=== PATIENT | male | born 1965 | race Caucasian/White ===

== ENCOUNTER 2024-02-21 10:13 | Inpatient (IN) | payer OTHER, SELFPAY ==
[2024-02-21] VITALS (62 sets, daily range): BP systolic 104–154; BP diastolic 65–128; BMI 43.2; BMI 42.5
[2024-02-21 09:18] LABS: Glucose - Point of Care 126 mg/dl (70-99)
--- NOTE | 2024-02-21 09:21 | ED.CVA ---
ED Provider Triage
-
59-year-old male with history of hypertension and hyperlipidemia (not on medications) presenting as a prehospital stroke alert. Patient reports that he last felt normal at 8 AM. At 830 [address] and started to feel like he was having
right-sided weakness and slurred speech. He walked into a store where they noticed his symptoms. Medics were subsequently called. Patient denies any known history of stroke. On arrival, obvious deficits with right upper extremity weakness and
slurred speech with facial drooping. Patient denies any numbness to his extremities. He denies any recent fever, chest pain, difficulty breathing, abdominal pain or additional acute medical complaints. He denies visual changes. Patient reports
smoking history, and notes that he is not on any medications, including any anticoagulant
History of Present Illness
General
Chief Complaint: CVA/TIA Symptoms
Time Seen by Provider: 02/21/24 09:18
Phy Exam
Physical Exam
Physical Exam:
General: no clinical signs of dehydration, nontoxic and in no acute distress
HEENT: protecting airway
Neck: appears supple
CV: Normal heart rate, regular rhythm, no evidence of cyanosis
Resp: No accessory muscle use, no increased work of breathing, lungs clear to auscultation bilaterally
Abd: Soft and non-distended, no tenderness to palpation
Extremities: No deformities, no swelling, no erythema
Neuro: alert, drift to right upper extremity, sensation grossly intact. Slurred speech. Mild left-sided facial droop. Motor intact to lower extremities
: deferred
Rectal: deferred
Psych: Normal affect
Skin: Intact
NIH Stroke Score
Level of Consciousness: 0 - Alert
LOC questions: 0-Answers both correctly
LOC Commands: 0-Performs both correctly
Best Gaze: 0-Normal
Visual Harris: 0=Normal, no visual loss
Facial palsy: 1=Minor paralysis
Motor - Right Arm: 1=Drift < 10 seconds
Motor - Left Arm: 0=No drift 10 seconds
Motor - Right Le-No drift 5 seconds
Motor - Left Le-No drift 5 seconds
Limb Ataxia: 0-Absent
Sensation: 0-Normal
Best Language: 1-Mild aphasia
Dysarthria: 2-Severe slurring
Extinction and Inattention: 0-No abnormality
Total Score:: 5
Course
Orders/Labs/Results
Orders:
Orders
02/21/24 09:18
CT Head W/o Cont STROKE ALERT Urgent
Comment:
Reason For Exam: right sided weakness
CT Head/Neck Ang STROKE ALERT Urgent
Comment:
Reason For Exam: right sided weakness
Bedside Glucose- Treatment ONCE
Cardiac Monitoring- Treatment ONCE
02/21/24 09:19
Electrocardiogram (*1) Stat
Reason for Study: Other
Other Reason for Exam: neuro symptoms
EKG- Treatment ONCE
02/21/24 09:20
NEUROLOGY CONSULT Urgent
Consulting Provider: Emiliano Au
Was physician already notified: Yes
Reason for consult: stroke alert
02/21/24 09:24
Complete Blood Count/With Diff Urgent
Comprehensive Metabolic Panel Urgent
PTT Urgent
Troponin I Urgent
02/21/24 09:31
Type+Screen Urgent
02/21/24 09:37
Labetalol HCl [Trandate] 20 mg .ROUTE .STK-MED ONE
02/21/24 09:44
Tenecteplase [Tnkase] 25 mg Syringe [Syringe Non-Pump] 0 ml IV NOW
Abnormal Lab Results
02/21/24 02/21/24
09:17 09:24
RBC 4.55 L 10^6/uL
(4.70-6.10)
Hct 38.9 L %
(39.0-52.0)
Abs Immat Gran (auto) 0.3 H 10^3/uL
(0-0.05)
Absolute Monos (auto) 1.4 H 10^3/uL
(0.1-0.6)
Immature Gran % 3.1 H %
(0-0.5)
Lymphocytes % 16.1 L %
(20.5-51.1)
Monocytes % 15.9 H %
(1.7-9.3)
Glucose 128 H mg/dl
(70-99)
POC Glucose 126 H mg/dl
(70-99)
02/21/24 09:24
02/21/24 09:24
Vital Signs
Initial and Last Documented VS:
Initial Vital Signs
Temp Pulse Resp BP Pulse Ox
98.5 F 76 18 149/88 92
02/21/24 09:16 02/21/24 09:16 02/21/24 09:16 02/21/24 09:16 02/21/24 09:16
Last Documented Vital Signs
Temp Pulse Resp BP Pulse Ox
98.5 F 75 18 145/85 92
02/21/24 09:16 02/21/24 09:39 02/21/24 09:39 02/21/24 09:39 02/21/24 09:39
MDM/Problems Addressed
MDM/Problems Addressed:
59-year-old male with history of hypertension and hyperlipidemia, however not on any medications, presenting as a prehospital stroke alert. Vital signs significant for mild hypertension.
On exam, patient with obvious neurologic deficits, right upper extremity weakness, slurred speech, facial droop. Neurology nurse practitioner at bedside on patient's arrival. Stroke alert protocol initiated, with initial evaluation completed, and
patient's sent to CT scan for CT brain. Given language component, decision made to obtain CT angio to rule out embolic component. IV access obtained laboratory analysis drawn.
09:38 -neurologist at bedside. Called by radiology, negative CT brain. Given deficits, plan for TNK. Risks explained to patient, verbally consented.
09:45 -critical care alert message sent to ICU and admitting doctor, again with plan for TNK administration.
*Critical Care Note
Total Time (30-74mins, 75-104mins- exclusive of procedures): 35
comment:
The high probability of a clinically significant, sudden or life threatening deterioration of the neurologic system(s) required my full and direct attention, intervention and personal management. The aggregate critical care time was 35 minutes. This
time is in addition to time spent performing reported procedures but includes the following:
[x] Data Review and interpretation
[x] Patient assessment and monitoring of vital signs
[x] Documentation
[x] Medication orders and management
ED Attending Note
-
Portions of this chart may have been created with voice recognition software.� Occasional wrong word or��sound alike� substitutions may have occurred due to the inherent limitations of voice recognition software.
Discharge Plan
Departure
Patient Disposition: Admit
Date of Disposition: 02/21/24
Time of Disposition: 09:45
Presentation/result/management discussed w/ accepting MD/DO: Hospitalist
Patient with high blood pressure during this ER visit?: Yes
Condition: Serious
Discharge Problem:
Stroke-like symptoms, Dysphagia, Dysarthria, Right arm weakness, Hypertension
Interventions
Interventions:
*General Assessment Last Done: 02/21/24 09:16
ED- Pulmonary Assessment Last Done: 02/21/24 09:33
ED- Neurological Assessment Last Done: 02/21/24 09:41
ED- Cardiac Assessment Last Done: 02/21/24 09:33
Discharge Date and Time
Print Language: KAZAKH
[2024-02-21 09:32] LABS: % Basophils 1.1 % (0-2); % Eosinophils 2.6 % (0-6); % Immature Granulocytes 3.1 % (0-0.5); % Lymphocytes 16.1 % (20.5-51.1); % Monocytes 15.9 % (1.7-9.3); % Neutrophils 61.2 % (42.2-75.2); Absolute Basophils 0.1 10^3/uL (0-0.2); Absolute Eosinophils 0.2 10^3/uL (0-0.7); Absolute Immature Granulocytes 0.3 10^3/uL (0-0.05); Absolute Lymphocytes 1.5 10^3/uL (1.2-3.4); Absolute Monocytes 1.4 10^3/uL (0.1-0.6); Absolute Neutrophils 5.5 10^3/uL (1.4-6.5); Hematocrit 38.9 % (39.0-52.0); Hemoglobin 13.7 g/dL (13.0-18.0); Mean Corp Hgb Conc. 35.2 g/dL (33.0-37.0); Mean Corpuscular Hgb 30.1 pg (27.0-31.0); Mean Corpuscular Volume 85.5 fL (80.0-94.0); Mean Platelet Volume 9.3 fL (7.4-10.4); Nucleated Red Blood Cells % 0 % (-); Platelet Count 259 10^3/uL (130-400); Red Blood Cell Count 4.55 10^6/uL (4.70-6.10); Red Cell Dist. Width 13.4 % (11.5-14.5)
[2024-02-21 09:41] LABS: APTT 29.1 Sec (23.4-35.0)
[2024-02-21 09:45] LABS: ALT (SGPT) 41 U/L (0-50); AST (SGOT) 29 U/L (17-59); Albumin 3.5 g/dl (3.5-5.0); Alkaline Phosphatase 94 U/L (38-126); Blood Urea Nitrogen 13 mg/dl (9-20); Calcium 8.7 mg/dl (8.4-10.2); Carbon Dioxide 26 mmol/L (22-30); Chloride 103 mmol/L (98-107); Estimated Creatinine Clearance > 125 ml/min; Glucose 128 mg/dl (70-99); Potassium 3.7 mmol/L (3.5-5.1); Sodium 136 mmol/L (135-145); Total Bilirubin 0.7 mg/dl (0.2-1.3); Total Protein 6.4 g/dl (6.3-8.2); eGFR > 60.00
[2024-02-21] MEDS: TNKASE 5 MG IV (09:50)
[2024-02-21 09:55] LABS: Troponin I < 0.012 ng/ml
--- NOTE | 2024-02-21 10:08 | CON.INTV ---
Consultation
Consultation Request
Date/Time Consultation Requested: 02/21/2024-10:30 AM
Date/Time Consultation Performed: 02/21/2024-10:30 AM
Requesting Provider: Hospitalist
Performing Provider: Dr. Santos
Reason for Consultation: CVA/critical care management
Medical History
-
Chief Complaint: New weakness/CVA
History of Present Illness:
59-year-old male with a history of hypertension hyperlipidemia presented with right-sided weakness and slurred speech found to have evolving CVA and received TNK-de ionizer operator consulted for post TNK/CVA/critical care management 02/21/2024. He
complains of a cough initially green and now 'milky' sputum production. His right upper extremity weakness has improved so is his speech. He denies any shortness of breath at rest, hemoptysis, chest pain, chest tightness, wheezing, abdominal pain,
nausea, vomiting, and has some left lower extremity swelling.
Past Medical History
Past Medical History: None (Hypertension. Hyperlipidemia. Obesity. Cigarette smoker.)
Social History
Tobacco: Smoker (73-vcto-avht-ongoing)
Drug: None
Living: With Family
Occupational Exposures: No known asbestos exposure
Environmental Exposures: No known tuberculosis exposure
Family History
Family History: Reviewed & Not Pertinent
Allergies / Home Medications
Allergies
Allergy/AdvReac Type Severity Reaction Status Date / Time
No Known Allergies Allergy Verified 02/21/24 09:21
Review of Systems
-
Unable to Obtain full review of systems at this time due to: Other (Per HPI)
Vitals / Labs / Diagnostic Testing
Vital Signs
Temp Pulse Resp BP Pulse Ox
98.5 F 73 18 145/80 91
02/21/24 09:16 02/21/24 10:06 02/21/24 10:06 02/21/24 10:06 02/21/24 10:00
Lab Data
02/21/24 09:24
02/21/24 09:24
Laboratory Results
02/21/24
09:24
APTT 29.1
Diagnostic Testing:
Physical Exam
-
Exam:
Well-nourished and well-developed in no apparent distress
HEENT-atraumatic, normocephalic
Neck-supple, no JVD, no bruit
Heart-regular rate and rhythm-no murmurs, rubs or gallops
Chest-clear to auscultation, no wheezes, crackles
Back-no tenderness
Abdomen-soft, nontender, nondistended, no hepatosplenomegaly
Extremities-no cyanosis, clubbing, edema and good peripheral pulses
Integument-intact, no rashes, lesions or ecchymosis
Neurologically alert and oriented with some nhipv-deysp-oozzm extremity weakness and dysarthria
Assessment
-
59-year-old male with a history of hypertension hyperlipidemia presented with right-sided weakness and slurred speech found to have evolving CVA and received TNK-de ionizer operator consulted for post TNK/CVA/critical care management 02/21/2024.
Evolving acute CVA
Status post TNK 02/21/2024
Bronchitis
Cigarette tocize-71-pilt-year ongoing
Mild hyperglycemia
Morbid obesity-BMI greater than 40
MARCELLUS suspected
Conditions present prior to admission:
Hypertension
Hyperlipidemia
Morbid obesity
Plan
Admit patient to medical intensive care unit
Supplemental oxygen to maintain saturation greater than 92%
Aspiration precautions
Incentive spirometry
Patient reports bronchitis like symptoms-green and now milky white sputum production with cough, no fevers or chills
Sputum culture
Covid rapid
Check chest x-ray
Consider antibiotics for bronchitis
Neurology evaluation
Monitor blood pressure closely-goal SBP < 180, DBP < 105
Neuro checks per protocol
CT head and CTA head neck angiogram summarized below
MRI head/MRA head and neck in next 24 hours
Status post tenecteplase infusion
Hold antiplatelet therapy �24 hours
Check lipid panel
Check echocardiogram
Check A1c
Carotid circulation evaluation
Atorvostatin 80 mg daily if tolerated
Monitor blood sugar-insulin as needed-goal blood sugar 140-180
DVT prophylaxis-sequential for 24 hours and then Lovenox
Speech therapy/occupational therapy/physical therapy evaluation
Smoking cessation counseling performed
Weight loss counseling
Obstructive sleep apnea suspected-snoring, morbid obesity, thick neck, etc.
Outpatient pulmonary/sleep disorders iuyomj-gk-[id number] sleep study, PFTs, ongoing Breztri/albuterol use, and yearly low-dose lung cancer screening CT
Critical care statement: A total of 50 minutes of critical care time was provided for this patient today. This includes management of unstable vital signs, evaluation of the patient at bedside, reviewing the patient's pertinent medical records
including radiographs, microbiology, laboratory evaluations, and discussion with primary team, consultants, pharmacy, nutrition, physical therapy, case management, charge nurse, critical care nursing, and respiratory therapy.
Diagnostic data:
CT head 02/21/2024-no acute intracranial abnormalities
CT head and neck angiogram 02/21/2024-No large vessel occlusion, calcifications of bilateral petrous and cavernous internal carotid arteries resulting in moderate narrowing of the right cavernous ICA and no significant narrowing of the left cavernous
ICA, calcifications of the left greater than right carotid bifurcation without significant stenosis
Data Reviewed
-
EKG: Report reviewed by me
Radiology: Report reviewed by me
CT Scan: Report reviewed by me
Medical Tests (Nuc Med, Echo etc): Report reviewed by me
Labs: Labs reviewed by me
Old Records: Reviewed
Critical Care Time (in minutes): 50
--- NOTE | 2024-02-21 10:56 | HPS.HSE ---
Family Physician
-
Family Physician: * NONE
Chief Complaint
-
RUE weakness and dysarthria
History of Present Illness
59yo M with PMHx of HTN not on meds, current smoker to ED right after he noticed his R hand became flacid and his face not moving properlyy on R side while he was driving. In ED with persistent motor deficit and as per assessment by Neurologist -
tPa was administered. RUE ROM started to recover. Admitted for CVA
Medical History
Past Medical History
Past Medical History: Reports Other
Additional Past Medical History:
see HPI
Past Surgical History: Reports None
Social History
Tobacco: Smoker
Alcohol: None
Drug: None
Family History
Family History: Not pertinent
Allergies / Home Medications
Allergies reflects when Allergies were last updated in [facility].
Home Medications with original date entered in [facility]
Allergy/Medication List:
Allergies
Allergy/AdvReac Type Severity Reaction Status Date / Time
No Known Allergies Allergy Verified 02/21/24 09:21
Home Medications
No Meds [No Current Medications] 02/21/24
Review of Systems
-
History Source: Patient
A 12 point ROS was completed and negative except as noted: Yes
Neurological: Reports See HPI
Physical Exam
Vital Signs
Vital Signs
Temp Pulse Resp BP Pulse Ox
98.5 F 70 24 134/79 93
02/21/24 10:47 02/21/24 10:36 02/21/24 10:36 02/21/24 10:36 02/21/24 10:46
Physical Exam
General: No Apparent Distress and Slurred Speech
HEENT: NormoCephalic, Anicteric and Moist mucous membranes
Respiratory: Clear; No Wheezes, Rales or Rhonchi
Cardiac: S1/S2 and Regular Rhythm; No Murmur
GI: Soft, Non Tender and Non Distended
Rectal: Brown
Musculoskeletal: No Clubbing, No Cyanosis and No Edema
Skin: Warm; No Dry or Rash
Neuro: Awake, Alert, Oriented, AO x 3, Slurred Speech and Facial Droop (on R)
Psych: Calm
Laboratory Results
-
02/21/24 09:24
02/21/24 09:24
Laboratory Results
APTT 29.1 Sec (23.4-35.0) 02/21/24 09:24
Total Bilirubin 0.7 mg/dl (0.2-1.3) 02/21/24:24
AST 29 U/L (17-59) 02/21/24 09:24
ALT 41 U/L (0-50) 02/21/24:24
Alkaline Phosphatase 94 U/L (38-126) 02/21/24 09:24
Troponin I < 0.012 ng/ml 02/21/24 09:24
Data Reviewed
-
CT Scan: Report Reviewed by me
Lab Data: Labs Reviewed by me
Impression/Plan
-
59yo M with PMHx of HTN not on meds, current smoker to ED right after he noticed his R hand became flacid and his face not moving properlyy on R side while he was driving. In ED with persistent motor deficit and as per assessment by Neurologist -
tPa was administered. DAFNE BENOIT started to recover. Admitted for CVA
A/P:
#CVA
CTA head and neck - ASCVD but no significant carotid stenosis or LVO
Echo
Check TSH, lipids, HgbA1c
Permissive HTN
Labetalol for BP> 180/105
RACKMAN/PT/OT assessment
Neurologist to follow
Telemetry
statin
Start ASA 24h afte the stroke
MRI head
Fishing Rod Assembler consult
#Mild monocytosis
check COVID-19
#Essential HTN
Start antihypertensives depending on BP trend
#Nicotine dependency
25yeard of 1ppd
Advised cessation
Nicoderm PRN
DVT ppx SCDs
Full code
I have spent at least 76min preparing admission,. reviewing chart, test results and providing direct patient care
--- NOTE | 2024-02-21 11:23 | PTCARENOTE ---
pt aaox3. states no pain. admit from ED with cva and tkn treatment. nihss done at bedside with ED nurse. right facial droop dysarthria and mild right arm ataxia noted. pt states the strength in his right arm is much better than when event
occurred. feels speech is also improving. pt passed swallow eval. nsr seen on monitor. pt on 2lnc diminished breath sounds moist productive cough. pt states he has had it for a week with green and white milky sputum. Dr Santos aware.
[2024-02-21 11:43] LABS: COVID-19 Antigen Negative (Negative)
[2024-02-21] MEDS: NICODERM TRANSDERMAL 21 MG TRANSDERM (11:46)
--- NOTE | 2024-02-21 12:04 | CARDSERVLU ---
Echocardiogram with [facility] completed after protocol screening completed. Allergies verified.
Patent IV site: __R AC__
IV site flushed with 0.9% NaCl pre and post administration.
Diluted bolus method utilized to enhance visualization of ventricular cronin.
Total volume given: _2___ mL
Patient tolerated all procedures well without complications.
--- NOTE | 2024-02-21 12:30 | CON.NEURO4 ---
Documented by User: Zahra Matta NP 02/21/24 13:07
Consultation - Neurology 4
-
CONSULTING PHYSICIAN: Emiliano Au MD
REFERRING PHYSICIAN: ER/Dr. Diaz
DICTATED BY: DEE Cary
DATE/TIME OF REQUEST: 02/21/24
DATE/TIME OF CONSULTATION: 02/21/24 0920
Reason for Consultation: Stroke Alert
History of Present Illness:
This is a 59-year-old male with a PMH of untreated HTN, HLD, current smoker who has presented to the hospital with report of sudden onset RUE weakness/incoordination and dysarthria. Patient reports waking up this morning at 0530 and being in his
usual state. At 0830 [address] to work when his RUE suddenly felt week and uncoordinated and he couldn't control the steering wheel. He said something out loud and noticed that his speech sounded slurred. He pulled over and went into a store
and an employee called 911. CT head and CTA head/neck were obtained on arrival to the hospital and were negative for any acute findings. NIHSS is a 5 for right facial drooping, dysarthria, RUE drift, and RUE incoordination. He denies any headache,
dizziness, vision changes, numbness, nausea, chest pain, palpitations, and shortness of breath. He notes a one week history of nasal/chest congestion associated with cough but denies any fevers or chills. Patient denies any history of TIA, stroke,
or events like this in the past. He is not taking any blood-thinning medications.
Past Medical History: HTN, HLD, obesity
Surgical History: Denies
Family History: Reviewed and noncontributory.
Social History: Current ~1 PPD smoker. Denies alcohol and illicit drug use.
Allergies: No known allergies.
Home Medications: See below.
Review of Symptoms:
Patient denies any fever, headache, chest pain, shortness of breath, GI or symptoms.
�Per the HPI.�All systems are reviewed negative except above.
Physical Exam:
The patient is afebrile, abdomen is large/round, breathing is unlabored, skin is warm and dry, trace BLE edema.
NIH Stroke Scale:
I performed the NIH stroke scale on the patient on 02/21/24 at 0920. The patient scored 5 points on the NIH stroke scale assessment, which were assigned as follows: See below.
Neurologic Examination:
The patient is awake, alert and oriented x 3. He is able to follow commands and answer questions appropriately. There is no aphasia. There is moderate dysarthria. On cranial nerve assessment, pupils are 3 mm bilateral, round and reactive to light
and accommodation. Visual harris are full. Extraocular movements are intact. There is right lower facial drooping. Hearing is intact bilaterally to normal conversation volume. Tongue palate and uvula are midline. Motor strengths are 4/5 right upper,
5/5 left upper, and 5/5 bilateral lower extremities on medical research [place] scale. There is drift in the RUE. No involuntary movement noted. There was no extinction noted on double simultaneous stimulation. Coordination is ataxic in the RUE.
Lab Results: See below.
Neuro Imaging:
1. CT Head 02/21/24: No acute intracranial abnormality noted, specifically no evidence of acute intracranial hemorrhage or large vessel territory infarction. Mucosal thickening with aerosolized secretions of the left greater than right maxillary
sinuses. Consider clinical correlation for signs of acute sinusitis.
2. CTA head/neck 02/21/24: CTA head: No large vessel occlusion. There is atherosclerotic calcifications of the bilateral petrous and cavernous ICAs which result in mild/moderate narrowing of the right cavernous ICA and no significant narrowing of the
left cavernous ICA. No saccular aneurysm. CTA neck: Atherosclerotic calcifications of the left greater than right carotid bifurcations without significant stenosis. Ground glass opacities within the right upper lobe which may be in part due to
respiratory motion however can be seen with infectious/inflammatory process.
Differentials for the patient's presentation include:
1. Acute left hemisphere ischemic infarct likely producing sudden right-sided weakness, incoordination, right facial drooping, and dysarthria.
2. Possible URI.
3. Hypertension.
Patient has the following risk factors for their symptoms: HTN, HLD, obesity, smoker
IV Tenecteplase/IAT candidacy: Patient received IV TNK per protocol at 0950. No LVO for IAT.
Recommendations:
�-IV Tenecteplase administered per protocol at 0950.
- Patient admitted to medical ICU after IV Alteplase administration for frequent neuro checks and vital signs per protocol.
- The goal blood pressure for the first 24 hours s/p TNK administration is less than 180/105 mmHg.� After this time, goal is normotension.
- Repeat CT head noncontrast tonight at 2130 for stabilization check.
-� MRI of the brain within 22-32 hours of TNK without contrast for localization of the stroke.�
- Reviewed CTA head/neck.�
- Please hold all antiplatelets for the first 24 hours s/p TNK. Aspirin 81mg daily can be initiated after 24 hours if MRI brain shows no hemorrhagic conversion.
- Check hemoglobin A1C.�Goal blood glucose levels are less than 180 mg/dL.
- Please start�the patient�on atorvastatin 40 mg by mouth daily at bedtime when patient is able to take medication by mouth.� Check LDL.� Goal LDL after stroke is <70.
- Check an echocardiogram.
- Provide patient with a stroke education packet.
- Smoking cessation counseling.
- PT/OT/ST evaluations. OK for out of bed to commode or chair with assistance prior to 24 hours.�
- DVT prophylaxis only with sequential compression devices over the 24 hours after tPA administration. Patient can be started on Lovenox subcutaneous for DVT prophylaxis after the 24 hour sebas.
- Rest of the management per the primary team.
Discussed patient care with: Dr. Diaz, Dr. Au, the patient
Vital Signs and Labs
-
Vital Signs and Labs:
Vital Signs
Temp Pulse Resp BP Pulse Ox
98.5 F 65 25 123/85 93
02/21/24 10:47 02/21/24 12:51 02/21/24 12:51 02/21/24 12:51 02/21/24 10:46
Lab Results
02/21/24 09:24
02/21/24 09:24
APTT 29.1 Sec (23.4-35.0) 02/21/24 09:24
Sodium 136 mmol/L (135-145) 02/21/24 09:24
Potassium 3.7 mmol/L (3.5-5.1) 02/21/24 09:24
BUN 13 mg/dl (9-20) 02/21/24 09:24
Glucose 128 mg/dl (70-99) H 02/21/24 09:24
Calcium 8.7 mg/dl (8.4-10.2) 02/21/24 09:24
Medications
-
Active Medications
Generic Name Dose Route Start Last Admin
Trade Name Freq PRN Reason Stop Dose Admin
Acetaminophen 650 mg 02/21/24 10:25
Acetaminophen 325 Mg Tablet PO 03/20/24 10:24
Q4HPRN PRN
BARBOSA, mild pain, or temp >100.4F
Atorvastatin Calcium 80 mg 02/21/24 18:00
Atorvastatin (Lipitor) 80 Mg Tablet PO 03/20/24 17:59
QPM WISAM
Labetalol HCl 10 mg 02/21/24 10:25
Labetalol Hcl 5 Mg/1 Ml (20 Mg/4 Ml) Injection IV 03/20/24 10:24
Q6HPRN PRN
BP > 180/105 mmHg
Nicotine 21 mg 02/21/24 12:00 02/21/24 11:46
Nicotine 21 Mg Patch TRANSDERM 03/20/24 11:59 21 mg
DAILY WISAM Administration
Sodium Chloride 0 flush 02/21/24 12:00
Sodium Chloride 0.9% (Flush) Syringe IV 03/20/24 11:59
PER PROTOCOL WISAM
Home Medications
�Medication �Instructions �Recorded
No Meds [No Current Medications] 02/21/24
NIH Stroke Score
Subsequent NIH Scale
Date of Subsequent NIH Scale: 02/21/24
Time of Subsequent NIH Scale: 09:20
NIH Stroke Score
Level of Consciousness: 0 - Alert
LOC Questions: 0-Answers both correctly
LOC Commands: 0-Performs both correctly
Best Horizontal Gaze: 0-Normal
Visual Harris: 0=Normal, no visual loss
Facial Palsy: 2=Partial paralysis
Motor - Right Arm: 1=Drift < 10 seconds
Motor - Left Arm: 0=No drift 10 seconds
Motor - Right Le-No drift 5 seconds
Motor - Left Le-No drift 5 seconds
Limb Ataxia: 1-Present in one limb
Sensation: 0-Normal
Best Language: 0-No aphasia
Dysarthria: 1-Mild slurring
Extinction and Inattention: 0-No abnormality
Total Score:: 5
Modified Callahan (mRS) Score
Modified Callahan Scale (mRS): No symptoms
Score: 0
Alteplase Contraindication
Inclusion and Exclusion criteria reviewed: Yes
IAT Contraindications: Imaging doesn't show large vessel occlusion as cause of stroke

Documented by User: Emiliano Au MD 02/23/24 18:37
Consultation - Neurology 4
-
CONSULTING PHYSICIAN: Emiliano Au MD
REFERRING PHYSICIAN: ER/Dr. Diaz
DICTATED BY: DEE Cary
DATE/TIME OF REQUEST: 02/21/24
DATE/TIME OF CONSULTATION: 02/21/24 0920
Reason for Consultation: Stroke Alert
History of Present Illness:
This is a 59-year-old male with a PMH of untreated HTN, HLD, current smoker who has presented to the hospital with report of sudden onset RUE weakness/incoordination and dysarthria. Patient reports waking up this morning at 0530 and being in his
usual state. At 0830 [address] was [address] to work when his RUE suddenly felt week and uncoordinated and he couldn't control the steering wheel. He said something out loud and noticed that his speech sounded slurred. He pulled over and went into a store
and an employee called 911. CT head and CTA head/neck were obtained on arrival to the hospital and were negative for any acute findings. NIHSS is a 5 for right facial drooping, dysarthria, RUE drift, and RUE incoordination. He denies any headache,
dizziness, vision changes, numbness, nausea, chest pain, palpitations, and shortness of breath. He notes a one week history of nasal/chest congestion associated with cough but denies any fevers or chills. Patient denies any history of TIA, stroke,
or events like this in the past. He is not taking any blood-thinning medications.
Past Medical History: HTN, HLD, obesity
Surgical History: Denies
Family History: Reviewed and noncontributory.
Social History: Current ~1 PPD smoker. Denies alcohol and illicit drug use.
Allergies: No known allergies.
Home Medications: See below.
Review of Symptoms:
Patient denies any fever, headache, chest pain, shortness of breath, GI or symptoms.
�Per the HPI.�All systems are reviewed negative except above.
Physical Exam:
The patient is afebrile, abdomen is large/round, breathing is unlabored, skin is warm and dry, trace BLE edema.
NIH Stroke Scale:
I performed the NIH stroke scale on the patient on 02/21/24 at 0920. The patient scored 5 points on the NIH stroke scale assessment, which were assigned as follows: See below.
Neurologic Examination:
The patient is awake, alert and oriented x 3. He is able to follow commands and answer questions appropriately. There is no aphasia. There is moderate dysarthria. On cranial nerve assessment, pupils are 3 mm bilateral, round and reactive to light
and accommodation. Visual harris are full. Extraocular movements are intact. There is right lower facial drooping. Hearing is intact bilaterally to normal conversation volume. Tongue palate and uvula are midline. Motor strengths are 4/5 right upper,
5/5 left upper, and 5/5 bilateral lower extremities on medical research [place] scale. There is drift in the RUE. No involuntary movement noted. There was no extinction noted on double simultaneous stimulation. Coordination is ataxic in the RUE.
Lab Results: See below.
Neuro Imaging:
1. CT Head 02/21/24: No acute intracranial abnormality noted, specifically no evidence of acute intracranial hemorrhage or large vessel territory infarction. Mucosal thickening with aerosolized secretions of the left greater than right maxillary
sinuses. Consider clinical correlation for signs of acute sinusitis.
2. CTA head/neck 02/21/24: CTA head: No large vessel occlusion. There is atherosclerotic calcifications of the bilateral petrous and cavernous ICAs which result in mild/moderate narrowing of the right cavernous ICA and no significant narrowing of the
left cavernous ICA. No saccular aneurysm. CTA neck: Atherosclerotic calcifications of the left greater than right carotid bifurcations without significant stenosis. Ground glass opacities within the right upper lobe which may be in part due to
respiratory motion however can be seen with infectious/inflammatory process.
Differentials for the patient's presentation include:
1. Acute left hemisphere ischemic infarct likely producing sudden right-sided weakness, incoordination, right facial drooping, and dysarthria.
2. Possible URI.
3. Hypertension.
Patient has the following risk factors for their symptoms: HTN, HLD, obesity, smoker
IV Tenecteplase/IAT candidacy: Patient received IV TNK per protocol at 0950. No LVO for IAT.
Recommendations:
�-IV Tenecteplase administered per protocol at 0950.
- Patient admitted to medical ICU after IV Alteplase administration for frequent neuro checks and vital signs per protocol.
- The goal blood pressure for the first 24 hours s/p TNK administration is less than 180/105 mmHg.� After this time, goal is normotension.
- Repeat CT head noncontrast tonight at 2130 for stabilization check.
-� MRI of the brain within 22-32 hours of TNK without contrast for localization of the stroke.�
- Reviewed CTA head/neck.�
- Please hold all antiplatelets for the first 24 hours s/p TNK. Aspirin 81mg daily can be initiated after 24 hours if MRI brain shows no hemorrhagic conversion.
- Check hemoglobin A1C.�Goal blood glucose levels are less than 180 mg/dL.
- Please start�the patient�on atorvastatin 40 mg by mouth daily at bedtime when patient is able to take medication by mouth.� Check LDL.� Goal LDL after stroke is <70.
- Check an echocardiogram.
- Provide patient with a stroke education packet.
- Smoking cessation counseling.
- PT/OT/ST evaluations. OK for out of bed to commode or chair with assistance prior to 24 hours.�
- DVT prophylaxis only with sequential compression devices over the 24 hours after tPA administration. Patient can be started on Lovenox subcutaneous for DVT prophylaxis after the 24 hour sebas.
- Rest of the management per the primary team.
Discussed patient care with: Dr. Diaz, Dr. Au, the patient
Addendum: I saw interviewed and examined patient along with WARP SPOOLER and ER physician. Agree with H& P. Performed NIHSS. Pat had an acute Left MCA infarction with slurred speech and right side weakness
Authorized TNK Injection. TNK injected at 0952. Pat tolerated injection and had no complaints
NIH Stroke Score
NIH Stroke Score
Total Score:: 5
Modified Anisha (mRS) Score
Modified Callahan Scale (mRS): No significant disability. Able to carry out usual activities.
Score: 1
--- NOTE | 2024-02-21 13:13 | PTOTSP ---
ST Acute Care Evaluation
Pt demonstrates mild oropharyngeal dysphagia characterized by mild impulsivity in bite size and intake rate, prolonged mastication, and inconsistent airway protection with solids (vs baseline congested cough).
Pt also demonstrates a mild to moderate dysarthria characterized by imprecise articulation of speech sounds and slow speech rate, as well as a mild neurocognitive disorder characterized by deficits in working memory, organization, executive
function, and auditory recall.
Recommendations:
- Upgrade PO diet to REGULAR SOLIDS, THIN LIQUIDS, and MEDS TOLERATED.
- General aspiration precautions: HOB upright, small bites/sips, slow intake rate.
- [employer] to f/u while pt is admitted to ensure pt is safely consuming the recommended diet consistencies and to determine whether pt would benefit from additional instrumental swallow assessment.
- [employer] to f/u to tx pt's mild to moderate dysarthria as well as mild neurocognitive disorder.
- Pt to continue receiving [employer] services at d/c at the acute rehab level of care.
--- NOTE | 2024-02-21 13:24 | PTCARENOTE ---
pt states his dog bite his left wrist and since getting the blood thinner it is starting to bleed. wound cleaned 4x4 and vahid wrap applied.
--- NOTE | 2024-02-21 15:16 | CM ---
CM following re: discharge planning.
Reviewed pt's chart, met with pt.
Pt is a 59 year old male, admitted with primary dx of CVA.
Pt reports he lives with spouse and a daughter in a 2SH, has 2 supportive children. Pt described himself as independent in all areas PTAS, drives, works. Pt reports his stroke symptoms resolving, he was not ably to lift right arm and now he is
moving freely. Pt stated he speech is effected. Pt feels he will need outpatient therapy and he preferred to come to outpatient therapy department.
PT, OT and ST will evaluate the pt to determine a level of care at discharge. Pt feels outpatient therapy will be appropriate. Pt is not home bound.
Please provide a script for outpatient therapy at discharge.
PCP: Lucas saravia
Pharmacy: [facility].
D/ plan: most likely home with outpatient therapy.
CM will follow wit discharge plan updates as hospitalization progresses
[2024-02-21] MEDS: LIPITOR 80 MG PO (17:37)
--- NOTE | 2024-02-21 20:00 | PTCARENOTE ---
rec`d pt at 1900. pt AAOx3. NIH done at bedside with previous RN. NIH-2. 1 for slurred speech and 1 for facial droop. SR on monitor. scds. Hr 70-80s. 3L NC. productive cough. POX 90-93%. reg diet. large, round abdomen. pt gets up w/ 1 assist.
urinal. left AC and left FA flushed and patent. CT scan scheduled for 2129. call dey in reach, safe environment maintained.
[2024-02-21] MEDS: ROBITUSSIN 200 MG PO (20:16)
[2024-02-22] VITALS (31 sets, daily range): BP systolic 105–142; BP diastolic 45–96; PULSE 70–77; O2SAT 91–93; BMI 42.2
--- NOTE | 2024-02-22 | PTCARENOTE ---
pt reassessed. no changes in pt assessment. call dey in reach.
--- NOTE | 2024-02-22 04:00 | PTCARENOTE ---
pt reassessed. no changes in pt assessment. call dey in reach.
[2024-02-22 04:23] LABS: Hematocrit 38.2 % (39.0-52.0); Hemoglobin 13.2 g/dL (13.0-18.0); Mean Corp Hgb Conc. 34.6 g/dL (33.0-37.0); Mean Corpuscular Hgb 30.6 pg (27.0-31.0); Mean Corpuscular Volume 88.6 fL (80.0-94.0); Mean Platelet Volume 9.1 fL (7.4-10.4); Platelet Count 254 10^3/uL (130-400); Red Blood Cell Count 4.31 10^6/uL (4.70-6.10); Red Cell Dist. Width 13.2 % (11.5-14.5); White Blood Cell Count 8.1 10^3/uL (4.8-10.8)
[2024-02-22 04:47] LABS: Blood Urea Nitrogen 8 mg/dl (9-20); Calcium 8.4 mg/dl (8.4-10.2); Carbon Dioxide 25 mmol/L (22-30); Chloride 102 mmol/L (98-107); Estimated Creatinine Clearance > 125 ml/min; Glucose 128 mg/dl (70-99); HDL Cholesterol 24 mg/dl; LDL Cholesterol, Calculated 101 mg/dl; Potassium 4.3 mmol/L (3.5-5.1); Sodium 133 mmol/L (135-145); Total Cholesterol 140 mg/dl (50-199); Triglyceride 75 mg/dl (10-149); Very Low Density Lipoprotein 15 mg/dl (0-30); eGFR > 60.00
[2024-02-22 05:16] LABS: TSH Reflex To Free T4 1.36 uIU/ml (0.47-4.68)
--- NOTE | 2024-02-22 07:33 | W.PN.INTV ---
Today's Communication / Plan
Recommendations
Neurochecks
Check MRI
Sputum culture pending
Consider treating bronchitis
Transfer out of ICU-plc programmer will sign off-call pulmonary if respiratory issues arise
Outpatient pulmonary/sleep disorders follow-up
Assessment
-
59-year-old male with a history of hypertension hyperlipidemia presented with right-sided weakness and slurred speech found to have evolving CVA and received TNK-plc programmer consulted for post TNK/CVA/critical care management 02/21/2024.
Evolving acute CVA
Status post TNK 02/21/2024
Bronchitis
Cigarette [id number] ongoing
Mild hyperglycemia
Morbid obesity-BMI greater than 40
MARCELLUS suspected
Conditions present prior to admission:
Hypertension
Hyperlipidemia
Morbid obesity
Plan
Neurologic status has improved slightly
Supplemental oxygen to maintain saturation greater than 92%
Aspiration precautions
Incentive spirometry encouraged
Patient reports bronchitis like symptoms-green and now milky white sputum production with cough, no fevers or chills
Sputum culture
Covid rapid negative
Chest x-ray 02/21/2024-right basilar subsegmental atelectasis
Consider antibiotics for bronchitis if symptoms persist
Neurology evaluation
Monitor blood pressure closely-goal SBP < 180, DBP < 105
Neuro checks per protocol
CT head and CTA head neck angiogram summarized below
Repeat CT head 02/21/2024-no acute intracranial abnormalities noted, no hemorrhage, no change
MRI head/MRA head and neck 02/22/2024-pending
Status post tenecteplase infusion
Hold antiplatelet therapy �24 hours
Check lipid panel
Echocardiogram 02/21/2024-EF 50-55%, no significant valvular disease
Check A1c
Carotid circulation evaluation
Lower extremity ultrasound 02/21/2024-no evidence for right or left lower extremity DVT
Atorvostatin 80 mg daily if tolerated
Monitor blood sugar-insulin as needed-goal blood sugar 140-180
DVT prophylaxis-sequential for 24 hours and then Lovenox
Speech therapy/occupational therapy/physical therapy evaluation
Smoking cessation counseling performed
Nicotine patch
Weight loss counseling
Patient neurovascularly intact-patient could be transferred out of ICU-plc programmer will sign off-call pulmonary if respiratory issues arise
Obstructive sleep apnea suspected-snoring, morbid obesity, thick neck, etc.
Outpatient pulmonary/sleep disorders [id number] sleep study, PFTs, ongoing Breztri/albuterol use, and yearly low-dose lung cancer screening CT
Reviewed the patient's pertinent medical records including radiographs, microbiology, laboratory evaluations, and discussion with primary team, consultants, pharmacy, nutrition, physical therapy, case management, charge nurse, critical care
nursing, and respiratory therapy.
Diagnostic data:
CT head 02/21/2024-no acute intracranial abnormalities
CT head and neck angiogram 02/21/2024-No large vessel occlusion, calcifications of bilateral petrous and cavernous internal carotid arteries resulting in moderate narrowing of the right cavernous ICA and no significant narrowing of the left cavernous
ICA, calcifications of the left greater than right carotid bifurcation without significant stenosis
Subjective Dataa
Subjective Data
Date of Service:
Date of Service: February 22, 2024
Chief Complaint: Education Teacher Follow Up, MARCELLUS Follow Up and Other (CVA)
Subjective:
Patient overall feels better, speech improved, right upper extremity strength improved, no shortness of breath, cough about the same, no chest pain, pleurisy, abdominal pain
Review of Systems
General: Other (Per HPI)
Objective Data
Data Reviewed
Vital Signs / I&O / Oxygen:
Vital Signs
Temp Pulse Resp BP Pulse Ox
98.3 F 74 23 133/90 92
02/22/24 04:00 02/22/24 07:00 02/22/24 07:00 02/22/24 07:00 02/21/24 19:59
Intake and Output
02/21/24 02/22/24 02/23/24
06:59 06:59 06:59
Intake Total 490 / 490
Output Total 1100 / 1100
Balance -610 / -610
SaO2 92
Nasal Cannula flow liters per 2
minute
Physical Exam
General: Respiratory Distress (n) and Comfortable
HEENT: Normocephalic, Anicteric, Moist Mucous Membranes and Other (Thick neck)
Cardiovascular: Regular Rhythm and Murmur (n)
Respiratory: Clear (Diminished breath sounds), Wheeze (n), Crackles (n), Non-Labored Respirations, Accessory Resp Muscle Use (n) and Stridor (n)
GI: Soft, Non Distended and Non Tender
Neurology: Awake, Alert and No Motor Deficits
Skin: Warm, Good Color, Cyanosis (n), Jaundice (n) and Rash (n)
Labs/Micro/Reports
Lab Data
02/22/24 04:09
02/22/24 04:08
Laboratory Results
02/21/24 02/22/24
09: 04:08
PT 15.0 H
INR 1.20
APTT 29.1 32.0
Microbiology
02/21/24 14:13 Sputum Gram Stain - Preliminary
[2024-02-22 08:14] LABS: Glycohemoglobin (HgbA1c) 6.2 % (4.0-5.6)
--- NOTE | 2024-02-22 08:44 | W.PN.HOSP.TC ---
Today's Communication/Plan
-
PT.OT, MRI head, chest XR repeat
Start ASA after MRI (24h after stroke)
Assessment / Plan
Assessment / Plan
59yo M with PMHx of HTN not on meds, current smoker to ED right after he noticed his R hand became flacid and his face not moving properlyy on R side while he was driving. In ED with persistent motor deficit and as per assessment by Neurologist -
tPa was administered. RUE ROM started to recover. Admitted for CVA, gradually improved. Echo neg for PFO, no Afib on tele.
Developed wheezing and increased flem without fever or leukocytosis suspect chronic bronchitis 2/2 smoking
A/P:
#CVA
CTA head and neck - ASCVD but no significant carotid stenosis or LVO
Echo: no PFO
TSH WNL
LDL 101
HgbA1c 6.2%
Permissive HTN
Labetalol for BP> 180/105
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
Neurologist to follow
Telemetry no clinically significant arrhythmia
statin
Start ASA 24h afte the stroke
MRI head
Meat Wrapper consult
#PreDM
advise weight loss and low carb diet
#Mild monocytosis
COVID-19 neg
#Essential HTN
Start antihypertensives depending on BP trend
#Nicotine dependency with chronic bronchitis
Chest XR not concerning for pneumonia, no leukocytosis or
25yeard of 1ppd
Advised cessation
Nicoderm PRN
#mild LLE swelling >R
most likely 2/2 obesity
US LE neg for DVT'
#morbid Obesity
BMI 42.2
Decrease calorie intake
DVT ppx SCDs
Full code
I have spent at least 56min reviewing chart, test results, communication with consultants and direct patient care
Anticipated Discharge: 24 - 48 hours
Subjective/Interval History
-
Date of Service: February 22, 2024
Objective Data
-
Labs:
Laboratory Results
02/22/24 02/22/24
04:08 04:09
WBC 8.1
Hgb 13.2
Hct 38.2 L
Plt Count 254
PT 15.0 H
INR 1.20
APTT 32.0
Sodium 133 L
Potassium 4.3
Chloride 102
Carbon Dioxide 25
BUN 8 L
Creatinine 0.6 L
Glucose 128 H
Calcium 8.4
Vital Signs:
Vital Signs
Temp Pulse Resp BP Pulse Ox
98.3 F 74 23 133/90 92
02/22/24 04:00 02/22/24 07:00 02/22/24 07:00 02/22/24 07:00 02/21/24 19:59
I&O
02/21/24 02/22/24 02/23/24
06:59 06:59 06:59
Intake Total 490 / 490
Output Total 1100 / 1100
Balance -610 / -610
Review of Systems
-
History Source: Patient
Physical Exam
-
General: No Apparent Distress
HEENT: Normocephalic, Atraumatic and Moist Mucous Membranes
Respiratory: Wheezes and Rales
Cardiac: Regular Rhythm and S1/S2; Negative Murmur
GI: Soft, Nontender and Nondistended
Genito-urinary: No Costovertebral Tender
Musculoskeletal: No Clubbing, No Cyanosis and No Edema
Skin: Warm
Neuro: Awake, Alert, Oriented, AO x 3 and Slurred Speech
Psych: Calm
Data Reviewed
-
Labs: Labs Reviewed by me
[2024-02-22] MEDS: ROBITUSSIN 200 MG PO (11:00)
[2024-02-22] MEDS: NICODERM TRANSDERMAL 21 MG TRANSDERM (11:00)
--- NOTE | 2024-02-22 11:58 | PTCARENOTE ---
0700 patient received in bed. NIH done at change of shift , No change NIH noted. pt continues with mild slurred speech ( 1) mild Rt side facial droop. pt denies pain. 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 10:00 patient taking to MRI result pending . Level of care
change to telemetry
--- NOTE | 2024-02-22 15:00 | PTCARENOTE ---
Transfer
Patient transfer from room 3369 to room 412 bed 2. patient transfer via bed Report to 4th floor shift nursing staff given patient wallet given to patient and transfer with patient. VSS . NIH done at bedside
--- NOTE | 2024-02-22 15:20 | PTCARENOTE ---
Pt was received from ICU at 1520 via bed. Pt is AAOx3, VSS. 2LNC, POX 92%. Pt brings up sputum frequently. NIH 2 on arrival (no change from previous). Pt resting in bed. Care plan reviewed and pt in understanding.
[2024-02-22] MEDS: SPIRIVA RESPIMAT 2.5 MCG INH (15:33)
[2024-02-22] MEDS: ROCEPHIN 1000 MG IV (16:20)
[2024-02-22] MEDS: STERILE WATER FOR INJECTION 10 ML IV (16:20)
[2024-02-22] MEDS: LIPITOR 80 MG PO (17:12)
[2024-02-22] MEDS: VIBRAMYCIN 100 MG PO (19:49)
[2024-02-22] MEDS: SYMBICORT 160/4.5 MCG INHALER 2 PUFF INH (19:55)
[2024-02-23] VITALS (8 sets, daily range): BP systolic 136–140; BP diastolic 66–84; PULSE 75; O2SAT 91
[2024-02-23] MEDS: TYLENOL 650 MG PO (00:22)
[2024-02-23] MEDS: LOW STRENGTH ASPIRIN 81 MG PO (07:40)
[2024-02-23] MEDS: PLAVIX 75 MG PO (07:40)
[2024-02-23] MEDS: NICODERM TRANSDERMAL 21 MG TRANSDERM (07:40)
[2024-02-23] MEDS: VIBRAMYCIN 100 MG PO ×2 (07:40→20:25)
[2024-02-23] MEDS: SPIRIVA RESPIMAT 2.5 MCG 2 PUFF INH (07:46)
[2024-02-23] MEDS: SYMBICORT 160/4.5 MCG INHALER 2 PUFF INH ×2 (07:46→19:45)
--- NOTE | 2024-02-23 09:39 | W.PN.HOSP.TC ---
Today's Communication/Plan
-
Add prednisone
watch fever recurrence
cont Abx
Assessment / Plan
Assessment / Plan
59yo M with PMHx of HTN not on meds, current smoker to ED right after he noticed his R hand became flacid and his face not moving properlyy on R side while he was driving. In ED with persistent motor deficit and as per assessment by Neurologist -
tPa was administered. RUE ROM started to recover. Admitted for CVA, gradually improved. Echo technically difficult, but as per neuro - unlikely cardioembolic source. no Afib on tele.
Developed COPD exacerbation with concern for RUL pneumonia
A/P:
#Acute respiratory insufficiency
#Nicotine dependency with acute on chronic bronchitis vs RUL pneumonia with unspecified organism and mild COPD exacerbation
25yeard of 1ppd
Advised cessation
Nicoderm PRN
ROcephin/Doxy
cont bronchodilators
5 days prednisone
wean off O2
#CVA
CTA head and neck - ASCVD but no significant carotid stenosis or LVO
Echo: technically difficult study, preserved EF
TSH WNL
LDL 101
HgbA1c 6.2%
Permissive HTN
Labetalol for BP> 180/105
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
Neurologist to follow
Telemetry no clinically significant arrhythmia
ASA, plavix (for 21 days), statin
MRI head: no acute pathology, but neurologist concerned for pre
Park Ranger consult
#PreDM
advise weight loss and low carb diet
#Mild monocytosis
COVID-19 neg
#Essential HTN
Start antihypertensives depending on BP trend
#MARCELLUS
sleep study outpatient
#NSVT
4 beats overnight on 02/22/24 - most likely 2/2 MARCELLUS
Telemetry
Echo showed preserved EF
#mild LLE swelling >R
most likely 2/2 obesity
US LE neg for DVT'
#morbid Obesity
BMI 42.2
Decrease calorie intake
DVT ppx SCDs
Full code
I have spent at least 56min reviewing chart, test results, communication with consultants and direct patient care
Anticipated Discharge: 24 - 48 hours
Subjective/Interval History
-
Date of Service: February 23, 2024
Objective Data
-
Vital Signs:
Vital Signs
Temp Pulse Resp BP Pulse Ox
97.5 F 70 18 136/76 91
02/23/24 07:20 02/23/24 07:58 02/23/24 07:58 02/23/24 07:20 02/23/24 07:58
I&O
02/22/24 02/23/24 02/24/24
06:59 06:59 06:59
Intake Total 490 / 490
Output Total 1100 / 1100 300 / 300
Balance -610 / -610 -300 / -300
Review of Systems
-
History Source: Patient
All other systems: Reviewed and negative
Physical Exam
-
General: Well Developed, Well Nourished and No Apparent Distress
HEENT: Normocephalic
Respiratory: Wheezes; Negative Crackles
Cardiac: Regular Rhythm
GI: Soft, Nontender and Nondistended
Genito-urinary: No Costovertebral Tender
Musculoskeletal: No Clubbing, No Cyanosis and No Edema
Skin: Warm
Neuro: Awake, Alert, Oriented, AO x 3 and Slurred Speech
Psych: Calm
[2024-02-23] MEDS: DELTASONE 40 MG PO (10:20)
--- NOTE | 2024-02-23 12:17 | CM ---
Patient seen at bedside. Per patient he is for discharge tomorrow. Patient states his plan is to go home with family and follow up with outpatient speech therapy,PT/OT. Patient will need script. CM will continue to follow for discharge planning
needs.
Plan; home with outpatient therapy
[2024-02-23] MEDS: STERILE WATER FOR INJECTION 10 ML IV (15:14)
[2024-02-23] MEDS: ROCEPHIN 1000 MG IV (15:14)
[2024-02-23] MEDS: LIPITOR 80 MG PO (17:02)
--- NOTE | 2024-02-24 00:17 | W.PN.NEURO.1 ---
Today's Communication / Plan
-
Discharge home. Stop smoking. Sleep study
Neuro Assessment/Plan
Assessment
59 yr. old male with h/o COPD, HTN,MARCELLUS who was admitted with new onset slurred speech and right sided weakness on Saturday received TNK 25 mg with complete resoltion of symptoms
Plan
Strict BP control
Aspirin 81 mg+ Plavix 75
Lipitor 80mg
Speech therapy
Stop smoking
Subjective/Objective
Subjective Data
Date of Service: February 23, 2024
Pat speech is mildly slurred. No aphasia. Weakness has resolved completely. He has no new complaints. Promises to stop smoking.
Objective Data
Vital Signs
Temp Pulse Resp BP Pulse Ox
97.5 F 70 18 136/76 91
02/23/24 07:20 02/23/24 07:58 02/23/24 07:58 02/23/24 07:20 02/23/24 07:58
Lab Results
02/22/24 04:09
02/22/24 04:08
PT 15.0 Sec (11.4-14.6) H 02/22/24 04:08
INR 1.20 02/22/24 04:08
APTT 32.0 Sec (23.4-35.0) 02/22/24 04:08
Sodium 133 mmol/L (135-145) L 02/22/24 04:08
Potassium 4.3 mmol/L (3.5-5.1) 02/22/24 04:08
BUN 8 mg/dl (9-20) L 02/22/24 04:08
Glucose 128 mg/dl (70-99) H 02/22/24 04:08
Calcium 8.4 mg/dl (8.4-10.2) 02/22/24 04:08
LDL Cholesterol, Calc 101 mg/dl 02/22/24 04:08
Patient Allergies
No Known Allergies Allergy (Verified 02/21/24 09:21)
Modified Fombell Score (MRS)
-
Modified Anisha Scale (mRS): No significant disability. Able to carry out usual activities.
Score: 1
[2024-02-24 03:30] VITALS: BP 129/66
[2024-02-24 07:25] VITALS: BP 134/75
[2024-02-24] MEDS: SYMBICORT 160/4.5 MCG INHALER 2 PUFF INH (07:25)
[2024-02-24] MEDS: SPIRIVA RESPIMAT 2.5 MCG 2 PUFF INH (07:25)
[2024-02-24] MEDS: ProAIR HFA INHALER 2 PUFF INH (07:26)
[2024-02-24] MEDS: VIBRAMYCIN 100 MG PO (09:11)
[2024-02-24] MEDS: PLAVIX 75 MG PO (09:11)
[2024-02-24] MEDS: LOW STRENGTH ASPIRIN 81 MG PO (09:11)
[2024-02-24] MEDS: NICODERM TRANSDERMAL 21 MG TRANSDERM (09:12)
[2024-02-24] MEDS: DELTASONE 40 MG PO (09:13)
[2024-02-24 11:03] VITALS: O2SAT 84; O2SAT 90
[2024-02-24 11:05] VITALS: BP 142/84
--- NOTE | 2024-02-24 11:05 | PTCARENOTE ---
pt 90% on room air. pt ambulating with the pulse ox dropped to 86% on the way back, down to 84% when pt reached his room. Pt denied SOB, pt on 2L o2 92-93%.
--- NOTE | 2024-02-24 11:36 | PTCARENOTE ---
pt 84% with ambulation on room air. pt on 93% on 2L oxygen.
--- NOTE | 2024-02-24 11:43 | CM ---
Patient seen bedside, patient for discharge today. Script for outpatient PT/OT placed on chart. Per nurse, patient qualifies for home O2. CM discussed with patient, no preference for DME agency. Referral sent to [facility] at [facility]. Patient reports he
does have transportation home. CM will continue to follow for all discharge planning needs.
Plan; home with outpatient therapy script, home O2, awaiting confirmation from [facility].
--- NOTE | 2024-02-24 13:01 | W.PN.HOSP.TC ---
Addendum entered and electronically signed by Medardo Blackman MD 02/24/24 13:14:
Time of discharge 39 minutes
Original Note:
Today's Communication/Plan
-
Monitor vital signs see plan
Continue aspirin Plavix for total 21 days and then aspirin alone
Need home O2 on discharge, being arranged by continuous pillowcase cutter
Continue with respiratory and albuterol as needed on discharge
Prednisone with taper
Change antibiotics to oral
Assessment / Plan
Assessment / Plan
59yo M with PMHx of HTN not on meds, current smoker to ED right after he noticed his R hand became flacid and his face not moving properlyy on R side while he was driving. In ED with persistent motor deficit and as per assessment by Neurologist -
tPa was administered. RUE ROM started to recover. Admitted for CVA, gradually improved. Echo technically difficult, but as per neuro - unlikely cardioembolic source. no Afib on tele.
Developed COPD exacerbation with concern for RUL pneumonia
A/P:
#Acute respiratory insufficiency likely 2/2 acute on chronic bronchitis, RUL pneumonia with unspecified organism and mild COPD exacerbation
#Nicotine dependency
25yeard of 1ppd
Advised cessation
Nicoderm PRN
ROcephin/Doxy
cont bronchodilators
Wean prednisone as tolerated
Patient is in need of oxygen on exertion due to pulse oximetry of 90% on room air at rest; 84% on room air with exertion.
Patient was placed on 2L O2 via nasal cannula with saturation of 93%. Oxygen will help to improve hypoxemia.
Patient is mobile within the home. Albuterol therapy has been discussed and is ineffective in treating hypoxemia-related symptoms.
Oxygen will improve the patient's symptoms.
#CVA
CTA head and neck - ASCVD but no significant carotid stenosis or LVO
Echo: technically difficult study, preserved EF
TSH WNL
LDL 101
HgbA1c 6.2%
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
Neurologist following
Telemetry no clinically significant arrhythmia
ASA, plavix (for 21 days), statin
MRI head with few punctate foci of restricted diffusion in the left parietal/centrum 70 ovale region. Consistent with tiny acute/subacute infarcts.
#PreDM
advise weight loss and low carb diet
#Mild monocytosis
COVID-19 neg
#Essential HTN
Start antihypertensives depending on BP trend
#MARCELLUS
sleep study outpatient
#NSVT
Telemetry
Echo showed preserved EF
#mild LLE swelling >R
most likely 2/2 obesity
US LE neg for DVT'
#morbid Obesity
BMI 42.2
Decrease calorie intake
DVT ppx SCDs
Full code
General: Well Developed, Well Nourished and No Apparent Distress
HEENT: Normocephalic
Respiratory: Wheezes; Negative Crackles
Cardiac: Regular Rhythm
GI: Soft, Nontender and Nondistended
Genito-urinary: No Costovertebral Tender
Musculoskeletal:No Edema
Neuro: Awake, Alert, Oriented, AO x 3 and Slurred Speech
Psych: Calm
Anticipated Discharge: Today
Subjective/Interval History
-
Date of Service: February 24, 2024
denies pain
Objective Data
-
Vital Signs:
Vital Signs
Temp Pulse Resp BP Pulse Ox
97.9 F 73 20 142/84 93
02/24/24 11:05 02/24/24 11:05 02/24/24 11:05 02/24/24 11:05 02/24/24 11:44
I&O
02/23/24 02/24/24 02/25/24
06:59 06:59 06:59
Intake Total 1679 / 1680
Output Total 300 / 300
Balance -300 / -300 0 / 0
--- NOTE | 2024-02-24 13:13 | W.DCSUMMARY ---
Discharge Summary
Discharge Data
Date of Admission: 02/21/24
Date of Discharge: 02/24/24
-
Pending Results: No
Hospital Course
59-year-old male with past medical history of hypertension, COPD came to the hospital with acute CVA. Patient got TNK on admission. Patient was then admitted to ICU. Patient was seen by neurology throughout hospitalization and was later started
on aspirin and Plavix which patient was instructed to continue for total of 21 days and then aspirin alone. Patient was also found to be prediabetic and was instructed to follow-up outpatient. Lab was later done which showed acute CVA. Patient
hospital course was complicated with acute hypoxic respiratory insufficiency which was likely thought was secondary to bronchitis, pneumonia and COPD exacerbation. Patient symptoms over time continue to improve with breathing treatments and
steroids. For pneumonia he was started on antibiotics. On home O2 evaluation patient desaturated upon ambulation and required oxygen on discharge. Once patient symptoms continue to improve, he was then discharged home with instructions to
follow-up with all his physicians outpatient.
Discharge Plan
-
Patient Disposition: Home (Routine Discharge)
Discharge Diagnosis/Procedures: CVA status post TNK
Acute hypoxic respiratory insufficiency secondary to acute on chronic bronchitis, COPD exacerbation and pneumonia
Prediabetes
Diet: As tolerated
Activity: As tolerated
Driving Restrictions: As prior to admission
Bathing Restrictions: None
Activity Restrictions/Additional Instructions:
Continue with aspirin and Plavix for total of 19 more days and then discontinue Plavix and continue aspirin indefinitely
Please check your blood pressure twice daily and to notify your primary care provider if blood pressure is persistently greater than 140/90
Referrals:
Emiliano Au MD [Active] - in two to four weeks
NONE,* [Family Provider] - in less than 1 week
Chung Santos MD [Active] - in two to four weeks
(Dr. Santos or SUPERVISOR OF INSTRUCTION
PFTs, yearly low-dose lung cancer screening CT, smoking cessation counseling
Home polysomnogram
)
Prescriptions:
New
atorvastatin 80 mg Tablet
80 mg PO QPM Qty: 30 0RF
aspirin 81 mg Tablet,Chewable
81 mg PO DAILY Qty: 30 0RF
nicotine 21 mg/24 hr Patch 24 Hour
21 mg transdermal DAILY Qty: 28 0RF
clopidogrel 75 mg Tablet
75 mg PO DAILY Qty: 19 0RF
albuterol sulfate 90 mcg/actuation Hfa Aerosol Inhaler
2 puff inhalation R Q4HPRN PRN (Reason: SOB, wheezing) Qty: 8.5 0RF
guaifenesin 100 mg/5 mL Liquid
200 mg PO Q4HPRN PRN (Reason: cough) Qty: 1500 0RF
doxycycline hyclate 100 mg Capsule
100 mg PO Q12 Qty: 10 0RF
prednisone 10 mg Tablet
See Rx Instructions .ROUTE .COMPLEX Qty: 30 0RF
Rx Instructions:
Take By Mouth:
40 mg daily x3 days, 30 mg daily x3 days,
20 mg daily x3 days, 10 mg daily x3 days.
cefdinir 300 mg capsule
300 mg PO BID Qty: 10 0RF
Continued
Breztri Aerosphere 160-9-4.8 mcg/actuation Hfa Aerosol Inhaler
2 inh INHALATION QAM AND QPM
Discharge Orders:
Discharge Patient (As Directed); Ordered 02/24/24
Ordered By: Medardo Blackman
Discharge Date and Time
Discharge Date/Time: 02/24/24 16:11
Print Language: CYMRAES
== END 2024-02-24 16:11 | disposition home or self-care (01) | DRG 61 ==
LOC: 4 EAST ACU 10:13
PROVIDERS: ADMITTING PHYSICIAN Internal Medicine; ATTENDING PHYSICIAN Internal Medicine; CONSULT PHYSICIAN Psychiatry & Neurology Neurology; EMERGENCY PHYSICIAN Student in an Organized Health Care Education/Training Program; OTHER PHYSICIAN Internal Medicine Critical Care Medicine
PROC: 3E03317 Introduction of Other Thrombolytic into Peripheral Vein, Percutaneous Approach (ICD-10-PCS; 2024-02-21)
DX: I63.512 Cerebral infarction due to unspecified occlusion or stenosis of left middle cerebral artery (principal); J18.9 Pneumonia, unspecified organism; Z68.41 Body mass index [BMI] 40.0-44.9, adult; J44.0 Chronic obstructive pulmonary disease with (acute) lower respiratory infection; J44.1 Chronic obstructive pulmonary disease with (acute) exacerbation; I47.29 Other ventricular tachycardia; R29.705 NIHSS score 5; J20.9 Acute bronchitis, unspecified; I10 Essential (primary) hypertension; E78.5 Hyperlipidemia, unspecified; R47.01 Aphasia; R47.1 Dysarthria and anarthria; R29.810 Facial weakness; G83.21 Monoplegia of upper limb affecting right dominant side; R73.03 Prediabetes; R06.89 Other abnormalities of breathing; R09.02 Hypoxemia; F17.210 Nicotine dependence, cigarettes, uncomplicated; D72.821 Monocytosis (symptomatic); E66.01 Morbid (severe) obesity due to excess calories; G47.33 Obstructive sleep apnea (adult) (pediatric); Z11.52 Encounter for screening for COVID-19
CPT/HCPCS: 70450; 70496; 70498; 70551; 71045; 80048; 80053; 80061; 82962; 83036; 84443; 84484; 85025; 85027; 85610; 85730; 86850; 86900; 86901; 87070; 87205; 87811; 92523; 92610; 93005; 93306; 93970; 94640; 96374; 97162; 97166; 97530; 99291; 99406; J3101; Q9950; Q9967

== ENCOUNTER 2024-05-13 15:25 | Inpatient (IN) | payer OTHER, SELFPAY ==
[2024-05-13] VITALS (9 sets, daily range): BP systolic 136–178; BP diastolic 78–110; BMI 42.8; BMI 42.2
[2024-05-13 10:28] LABS: % Basophils 1.4 % (0-2); % Eosinophils 4.1 % (0-6); % Immature Granulocytes 0.9 % (0-0.5); % Monocytes 12.3 % (1.7-9.3); % Neutrophils 64.3 % (42.2-75.2); Absolute Basophils 0.1 10^3/uL (0-0.2); Absolute Eosinophils 0.3 10^3/uL (0-0.7); Absolute Immature Granulocytes 0.1 10^3/uL (0-0.05); Absolute Lymphocytes 1.4 10^3/uL (1.2-3.4); Absolute Neutrophils 5.2 10^3/uL (1.4-6.5); Hematocrit 45.5 % (39.0-52.0); Hemoglobin 15.7 g/dL (13.0-18.0); Mean Corp Hgb Conc. 34.5 g/dL (33.0-37.0); Mean Corpuscular Hgb 30.6 pg (27.0-31.0); Mean Corpuscular Volume 88.7 fL (80.0-94.0); Mean Platelet Volume 9.2 fL (7.4-10.4); Nucleated Red Blood Cells % 0 % (-); Platelet Count 218 10^3/uL (130-400); Red Blood Cell Count 5.13 10^6/uL (4.70-6.10); Red Cell Dist. Width 13.6 % (11.5-14.5)
--- NOTE | 2024-05-13 10:38 | ED.GENMED ---
History of Present Illness
General
Chief Complaint: Cough
Time Seen by Provider: 05/13/24 10:01
History of Present Illness
History of Present Illness:
Patient is a 59-year-old male with history of hypertension, diabetes hyperlipidemia, prior CVA with no residual deficits, prior smoker quit 3 months ago presenting to the emergency department gross hemoptysis. Patient states that he has been
coughing a lot with phlegm every morning secondary to quitting smoking. This morning he coughed up blood. No clots. At 1 point he did cough up pure blood without any sputum which is why he came in here. He is on aspirin and takes 800 mg
ibuprofen a day for his knee. He denies any fevers chills chest pain difficulty breathing nausea vomiting. No leg swelling recent travel or malignancy. No recent travel or history of incarceration. He is not on any blood thinners.
Phy Exam
Physical Exam
Physical Exam:
GENERAL: in no acute distress, gross hemoptysis in emesis basin
HEENT: normocephalic, extraocular movements intact, moist oral mucosa
NECK: normal inspection
RESPIRATORY: no respiratory distress, clear to auscultation bilaterally
CARDIOVASCULAR: regular rate and rhythm
ABDOMEN/: soft, non-distended, non-tender to palpation, no rebound or guarding
EXTREMITIES: non-tender, no edema/swelling
NEUROLOGIC: awake and alert, moves all extremities
SKIN: warm
Course
Orders/Labs/Results
Orders:
Orders
05/13/24 10:01
Electrocardiogram (*1) Urgent
Reason for Study: Other
Other Reason for Exam: Respiratory Distress
Cardiac Monitoring- Treatment ONCE
EKG- Treatment ONCE
IV Insert/Care/Rem.- Treatment PRN
CR Chest - 2 Views Urgent
Comment:
Reason For Exam: respiratory distress
O2 Therapy [RESP] Urgent
Titrate/Wean O2 to maintain O2 sat greater than (%): 93
Special Instructions: TO MAINTAIN CONTINUOUS O2 SATS >/= 93%
Pulse Ox/cont/shift [RESP] Urgent
Quantity: 1
Special Instructions: continuous pulse ox
05/13/24 10:14
Complete Blood Count/With Diff Urgent
Comprehensive Metabolic Panel Urgent
05/13/24 10:41
CT Chest Angio W/wo Iv Contras Urgent
Comment:
Reason For Exam: gross hemoptysis, hx smoking
05/13/24 13:13
CefTRIAXone [Rocephin] 2,000 mg IV NOW STA
05/13/24 13:32
Azithromycin 500 mg/250 ml [Zithromax Infusion] 500 mg in 250 ml IV NOW
Abnormal Lab Results
05/13/24
10:14
Abs Immat Gran (auto) 0.1 H 10^3/uL
(0-0.05)
Absolute Monos (auto) 1.0 H 10^3/uL
(0.1-0.6)
Immature Gran % 0.9 H %
(0-0.5)
Lymphocytes % 17.0 L %
(20.5-51.1)
Monocytes % 12.3 H %
(1.7-9.3)
Glucose 107 H mg/dl
(70-99)
05/13/24 10:14
05/13/24 10:14
Vital Signs
Initial and Last Documented VS:
Initial Vital Signs
Pulse Resp BP Pulse Ox
75 18 178/110 91
05/13/24 09:50 05/13/24 09:50 05/13/24 09:50 05/13/24 09:50
Last Documented Vital Signs
Pulse Resp BP Pulse Ox
60 15 149/100 98
05/13/24 13:00 05/13/24 13:00 05/13/24 13:00 05/13/24 13:00
MDM/Problems Addressed
Differential Diagnosis Includes:
Patient is a 59-year-old male with history of hypertension, hyperlipidemia, diabetes, prior CVA, 40-year smoker presenting to the emergency department gross mopped assist that started today. Vitals are notable for an oxygen of 90 to 91% so he was
placed on 2 L. Exam does show gross mopped assist in the emesis basin but his lungs are clear to auscultation. Differential is broad but consists of infection such as pneumonia versus malignancy versus PE. He really does not have any risk factors
to suggest TB. No traumatic injuries. Does not consume consistent with hematemesis or epistaxis. Will obtain blood work. Also obtain CT scan to further evaluate. Patient will need admission.
*Critical Care Note
Total Time (30-74mins, 75-104mins- exclusive of procedures): Not Applicable
Update Note
Update Note:
CT scan notable for multifocal pneumonia. Will treat with antibiotics. Discussed with hospitalist for admission.
ED Attending Note
-
Portions of this chart may have been created with voice recognition software.� Occasional wrong word or��sound alike� substitutions may have occurred due to the inherent limitations of voice recognition software.
Discharge Plan
Departure
Patient Disposition: Admit
Date of Disposition: 05/13/24
Time of Disposition: 13:12
Presentation/result/management discussed w/ accepting MD/DO: Hospitalist
Discharge Problem:
Pneumonia
Prescriptions:
No Action
Breztri Aerosphere 160-9-4.8 mcg/actuation Hfa Aerosol Inhaler
2 inh INHALATION QAM AND QPM
atorvastatin 80 mg Tablet
80 mg PO QPM Qty: 30 0RF
aspirin 81 mg Tablet,Chewable
81 mg PO DAILY Qty: 30 0RF
nicotine 21 mg/24 hr Patch 24 Hour
21 mg transdermal DAILY Qty: 28 0RF
clopidogrel 75 mg Tablet
75 mg PO DAILY Qty: 19 0RF
albuterol sulfate 90 mcg/actuation Hfa Aerosol Inhaler
2 puff inhalation R Q4HPRN PRN (Reason: SOB, wheezing) Qty: 8.5 0RF
guaifenesin 100 mg/5 mL Liquid
200 mg PO Q4HPRN PRN (Reason: cough) Qty: 1500 0RF
doxycycline hyclate 100 mg Capsule
100 mg PO Q12 Qty: 10 0RF
prednisone 10 mg Tablet
See Rx Instructions .ROUTE .COMPLEX Qty: 30 0RF
Rx Instructions:
Take By Mouth:
40 mg daily x3 days, 30 mg daily x3 days,
20 mg daily x3 days, 10 mg daily x3 days.
cefdinir 300 mg capsule
300 mg PO BID Qty: 10 0RF
Referrals:
Casimiro Farley MD [Family Provider] -
Interventions
Interventions:
*Risk Screen - Suicide Last Done: 05/13/24 09:50
*General Assessment Last Done: 05/13/24 09:50
*Neglect/Abuse Screening Last Done: 05/13/24 09:50
ED- Fall Risk Assessment Last Done: 05/13/24 10:16
*ED COVID-19 Vaccine History Last Done: 05/13/24 10:03
ED- Pulmonary Assessment Last Done: 05/13/24 10:16
Discharge Date and Time
Print Language: [id number]
[2024-05-13 10:50] LABS: Carbon Dioxide 27 mmol/L (22-30)
[2024-05-13 11:00] LABS: ALT (SGPT) 34 U/L (0-50); AST (SGOT) 26 U/L (17-59); Albumin 4.4 g/dl (3.5-5.0); Alkaline Phosphatase 114 U/L (38-126); Blood Urea Nitrogen 17 mg/dl (9-20); Calcium 9.6 mg/dl (8.4-10.2); Chloride 102 mmol/L (98-107); Estimated Creatinine Clearance > 125 ml/min; Glucose 107 mg/dl (70-99); Potassium 4.6 mmol/L (3.5-5.1); Sodium 140 mmol/L (135-145); Total Bilirubin 0.5 mg/dl (0.2-1.3); Total Protein 7.2 g/dl (6.3-8.2); eGFR > 60.00
--- NOTE | 2024-05-13 13:37 | HPS.HSE ---
Addendum entered and electronically signed by William Yates MD 05/13/24 17:09:
I personally performed a history and physical exam of the patient and discussed management with the resident. I reviewed the resident's note and agree with the documented findings and plan of care HPI/CC.
1. Hemoptysis
Left lower lobe infiltration - r/o PNA
- came in with new onset of blood on coughing in morning
- no fever/shortness breath
-Patient denies history of any recent facial trauma/nasal septal procedure/epistaxis/throat discomfort/dysphagia/history of esophageal-gastric bleed
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
-Clinically possibly brisk trachea/bronchial small vessel bleed induced by coughing episode causing left lower lobe aspiration and hemoptysis
-CTA chest images reviewed in ER and showing some bronchiectasis on the bilateral lower lobe. No PE visible.
-Obtain a sputum culture
-Check procalcitonin in the morning
-Maintain on empiric Rocephin and doxycycline
-Pulmonology consult
2. Type II DM
- maintain on metformin. continue on ISS
3. Possible COPD
-FP provided alb/breztri
-will need f/u with pulmo and PFT
DVTPPX - SCD
Full code
Total time spent : 77 mins
I personally saw and examined the patient.
I have reviewed all diagnostic interpretations and treatment plans as written.
Time includes patient management by me, time spent at the patients bedside, time to review lab and imaging results, discussing patient care, documentation in the medical record, and time spent with the family or caregiver and discussing care plan
with RN/Consultants.
Original Note:
Family Physician
-
Family Physician: Casimiro Farley MD
Chief Complaint
-
Cough
History of Present Illness
Patient is a 59-year-old male with a medical history of essential hypertension, diabetes, hyperlipidemia, prior CVA with no residual deficits, prior smoker for 40 years who quit 3 months ago who presented to the emergency department with gross
hemoptysis. The patient stated that he had been coughing a lot with phlegm every morning after he decided to quit smoking. The morning of his presentation to the emergency department he coughed up blood with no clots. At one point he did cough up
pure blood without any sputum which prompted him to go to the emergency department. He currently takes aspirin and 800 mg of ibuprofen a day for his knee. He denies any fevers, chills, chest pain, difficulty breathing, nausea, or vomiting. He has
no recent leg swelling. He is not on any blood thinners. On presentation to the emergency department the patient had a pulse of 75, respiration rate of 18, BP of 178/110, and a pulse oximetry of 91 on room air. He was placed on 2 L nasal cannula
and his oxygen saturation returned back to normal limits. On physical examination gross hemoptysis was seen and the patient's lungs were clear to auscultation. The patient was admitted to [facility] for hemoptysis.
Medical History
Past Medical History
Past Medical History: Reports CVA, HTN, Hypercholesterolemia and NIDDM
Past Surgical History: Reports None
Social History
Tobacco: Former Smoker
Alcohol: Occasional
Drug: None
Personal:
Living: With Family
Employment: Employed
Family History
Family History: Not pertinent
Allergies / Home Medications
Allergies reflects when Allergies were last updated in [employer].
Home Medications with original date entered in [employer]
Allergy/Medication List:
Allergies
Allergy/AdvReac Type Severity Reaction Status Date / Time
No Known Allergies Allergy Verified 05/13/24 09:50
Home Medications
albuterol sulfate 90 mcg/actuation aerosol inhaler 2 puff inhalation R Q4HPRN PRN SOB, wheezing #8.5 grams 02/24/24
budesonide 160 mcg-glycopyr 9 mcg-formot 4.8 mcg/actuation HFA inhaler (Breztri Aerosphere) 2 inh inhalation R BID Lung/Breathing Issues 02/24/24
aspirin 81 mg chewable tablet 81 mg PO DAILY Blood Clot Prevention/Tx 05/13/24
atorvastatin 80 mg tablet 80 mg PO QPM High Cholesterol 05/13/24
ibuprofen 200 mg tablet 200 mg PO DAILYPRN PRN mild pain 05/13/24
ibuprofen 200 mg tablet 600 mg PO DAILY pain 05/13/24
metformin 500 mg tablet,extended release 24 hr 500 mg PO DAILY Diabetes 05/13/24
Review of Systems
-
History Source: Patient
Constitutional: Reports No Symptoms
EENT: Reports No Symptoms
Respiratory: Reports Cough and Hemoptysis
Cardiac: Reports No Symptoms
Abdomen/GI: Reports No Symptoms
: Reports No Symptoms
Musculoskeletal: Reports No Symptoms
Skin: Reports No Symptoms
Neurological: Reports No Symptoms
Endocrine: Reports No Symptoms
Hematologic/Lymphatic: Reports No Symptoms
Psych: Reports No Symptoms
Physical Exam
Vital Signs
Vital Signs
Pulse Resp BP Pulse Ox
60 15 149/100 98
05/13/24 13:00 05/13/24 13:00 05/13/24 13:00 05/13/24 13:00
Physical Exam
General: Well Developed, Well Nourished, No Apparent Distress and Obese
HEENT: NormoCephalic, Anicteric, Moist mucous membranes, Atraumatic and Other (Blood seen in posterior throat likely from hemoptysis)
Respiratory: Clear, Non Labored Respirations, Clear to Percussion and Other (Blood seen in the throat)
Cardiac: S1/S2 and Regular Rhythm
Breast: Deferred by me
GI: Soft, Non Tender and Non Distended
Rectal: Deferred by Provider
Genito-urinary: Deferred by me
Musculoskeletal: No Clubbing, No Cyanosis and No Edema
Skin: Warm and Dry
Neuro: Awake, Alert, Oriented and AO x 3
Psych: Calm
Laboratory Results
-
05/13/24 10:14
05/13/24 10:14
Laboratory Results
Total Bilirubin 0.5 mg/dl (0.2-1.3) 05/13/24 10:14
AST 26 U/L (17-59) 05/13/24 10:14
ALT 34 U/L (0-50) 05/13/24 10:14
Alkaline Phosphatase 114 U/L (38-126) 05/13/24 10:14
Impression/Plan
-
Impression/Plan:
-Hemoptysis:
Chest x-ray conducted in the emergency department showed no active cardiopulmonary disease
CT angiography of the chest showed consolidation within the left lower lobe with surrounding groundglass opacities. There are also additional nodular consolidations within the right lower and left upper lobes. Findings may represent multifocal
pneumonia. There is mild mediastinal and left hilar adenopathy which may be reactive.
Will give patient sample cup in order to assess how much blood is being lost through hemoptysis
Will continue to follow labs and ensure that hemoglobin remains above 7
Pulmonology consulted for consideration of possible bronchoscopy if warranted
May consider ENT consult
Will give DuoNebs every 6 hours as needed
Cough is diminished significantly since his presentation in the morning
-Possible pneumonia:
CT angiography of the chest showed consolidation within the left lower lobe with surrounding groundglass opacities. There are also additional nodular consolidations within the right lower and left upper lobes. Findings may represent multifocal
pneumonia. There is mild mediastinal and left hilar adenopathy which may be reactive.
May get repeat CT for further assessment
Will obtain procalcitonin
Will give the patient a sample cup in order for him to collect sputum sample for further culture
Continue antibiotics
-COPD:
Continue rescue inhaler and Breztri
-Snoring while sleeping:
Patient may benefit from an outpatient referral to pulmonology and sleep medicine for further evaluation of potential sleep apnea.
-Hyperlipidemia:
Continue atorvastatin 80 mg
-Diabetes:
Patient placed on a low insulin sliding scale
Will get HbA1c
Holding metformin
FULL CODE STATUS
DVT prophylaxis: Sequential compression devices
[2024-05-13] MEDS: ZITHROMAX INFUSION 250 IV (13:43)
[2024-05-13] MEDS: ROCEPHIN 2000 MG IV (13:43)
--- NOTE | 2024-05-13 15:37 | CON.PUL ---
Consultation
Consultation Request
Date/Time Consultation Requested: 05/13/2024 - 1441
Date/Time Consultation Performed: 05/13/2024 - 1520
Requesting Provider: Dr. Winkler
Performing Provider: Dr. Ortega
Reason for Consultation: Hypoxia/Hemoptysis/Pneumonia
Medical History
-
Chief Complaint: Coughing up blood
History of Present Illness:
59-year-old male former tobacco smoker with >88-gjiw-vxvf history, quit January 2024, with a reported history of COPD, history of pneumonia, ischemic CVA s/p TNK (01/2024) and hypertension who presents with hemoptysis. He for started coughing up blood
at around 9 AM on 05/13/2024 and he says he feels like something is clogged at the base of his throat. He denies fever, shortness of breath or chest pain. He says that has been coughing up phlegm usually in the morning hours ever since he stopped
smoking a few months ago. He does take a baby aspirin daily, otherwise no other blood thinners, he denies night sweats, unintentional weight loss or recent travel. In the ER he was afebrile to 98.6 �F, pulse rate 75, breathing at 18 breaths/min,
BP 178/110 and saturating 91% on room air. Labs showed Hb 15.7, and platelet count 218. CXR showed no active cardiopulmonary disease, and CTA chest showed a left lower lobe consolidation with surrounding groundglass opacities in addition to
nodular opacification within the lingula. There is also mild mediastinal and left hilar lymphadenopathy. He was given ceftriaxone/Zithromax in the ER and admitted to the hospitalist service. Pulmonary now consulted for additional
management/recommendations.
When I saw the patient he was resting in bed in no acute distress, currently on 1 L/min nasal cannula saturating 94%. He has not coughed up blood since this morning. He currently denies chest pain, BARBOSA, abdominal pain, nausea, vomiting, diarrhea,
fevers or chills.
PMHx: Anterior circulation stroke (January 2024) s/p TNK, former tobacco smoker (>09-tyyw-spti, quit January 2024), reported history of COPD, history of pneumonia, hypertension
PSHx: Non-contributory
Past Medical History
Past Medical History: Other (Above as per HPI)
Past Surgical History: Other (Above as per HPI)
Social History
Tobacco: Former Smoker (>60-eaxi-whdx history, quit January 2024)
Alcohol: None
Drug: None
Family History
Family History: Other (Father: COPD)
Allergies / Home Medications
Allergies
Allergy/AdvReac Type Severity Reaction Status Date / Time
No Known Allergies Allergy Verified 05/13/24 09:50
Home Medications
�Medication �Instructions �Recorded �Confirmed �Last Taken �Type
albuterol sulfate 90 mcg/actuation 2 puff inhalation R Q4HPRN PRN 02/24/24 05/13/24 Unknown Rx
aerosol inhaler SOB, wheezing #8.5 grams
budesonide 160 mcg-glycopyr 9 2 inh inhalation R BID 02/24/24 05/13/24 02/21/24 History
mcg-formot 4.8 mcg/actuation HFA Lung/Breathing Issues
inhaler (Breztri Aerosphere)
aspirin 81 mg chewable tablet 81 mg PO DAILY Blood Clot 05/13/24 05/13/24 Unknown History
Prevention/Tx
atorvastatin 80 mg tablet 80 mg PO QPM High Cholesterol 05/13/24 05/13/24 Unknown History
ibuprofen 200 mg tablet 200 mg PO DAILYPRN PRN mild pain 05/13/24 05/13/24 Unknown History
ibuprofen 200 mg tablet 600 mg PO DAILY pain 05/13/24 05/13/24 Unknown History
metformin 500 mg tablet,extended 500 mg PO DAILY Diabetes 05/13/24 05/13/24 Unknown History
release 24 hr
Review of Systems
-
History Source: Patient
All other systems: Negative unless noted (12 point ROS performed and is negative unless mentioned above.)
Vitals / Labs / Diagnostic Testing
Vital Signs
Pulse Resp BP Pulse Ox
65 20 150/94 95
05/13/24 15:15 05/13/24 15:15 05/13/24 15:00 05/13/24 15:15
Lab Data
05/13/24 10:14
05/13/24 10:14
Diagnostic Testing:
Physical Exam
-
HEENT: Normocephalic and Anicteric
Cardiovascular: S1/S2 and Peripheral Edema (negative)
Respiratory: Wheeze (negative), Rales (negative), Rhonchi (Left base) and Non-Labored Respirations
GI: Soft, Distended (Abdominal obesity), Non Tender and Normal Bowel Sounds
Neurology: AO x 3 and Tremors (negative)
Skin: Warm and Dry
General: Respiratory Distress (negative), Comfortable, Chills (negative) and Sweats (negative)
Assessment
-
Assessment: 59-year-old male former tobacco smoker with >07-uyjr-rzcl history, quit January 2024, with a reported history of COPD, history of pneumonia, ischemic CVA s/p TNK (01/2024) and hypertension who presents with hemoptysis. He for started
coughing up blood at around 9 AM on 05/13/2024 and he says he feels like something is clogged at the base of his throat. He denies fever, shortness of breath or chest pain. He says that has been coughing up phlegm usually in the morning hours ever
since he stopped smoking a few months ago. He does take a baby aspirin daily, otherwise no other blood thinners, he denies night sweats, unintentional weight loss or recent travel. In the ER he was afebrile to 98.6 �F, pulse rate 75, breathing at
18 breaths/min, BP 178/110 and saturating 91% on room air. Labs showed Hb 15.7, and platelet count 218. CXR showed no active cardiopulmonary disease, and CTA chest showed a left lower lobe consolidation with surrounding groundglass opacities in
addition to nodular opacification within the lingula. There is also mild mediastinal and left hilar lymphadenopathy. He was given ceftriaxone/Zithromax in the ER and admitted to the hospitalist service. Pulmonary now consulted for additional
management/recommendations.
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
Impression:
#Multifocal pneumonia (CAP) with consolidative opacities mainly seen in the left lower lobe + inferior lingula with mild mediastinal + left hilar lymphadenopathy, likely reactive
#Gux-ptme-yqszszilcke hemoptysis likely due to above
#Pulmonary nodule in the inferior lingula (measures approx 8mm)
#Former tobacco smoker with >92-dypg-yzxg history, quit about 3 months ago
#Reported history of COPD on Breztri as an outpatient
#Hepatic steatosis
#Morbid obesity (BMI: 42.2)
Plan:
- Continue with antibiotics and would plan for total of 7 days assuming that he is continuing to improve and remains afebrile for 48 hours prior to stopping
- Currently on ceftriaxone/doxycycline
- Check infectious workup with sputum culture (if he can produce a decent sample), check blood Cx, and check urine antigens for strep pneumonia + Legionella
- Recommend repeating imaging with CT chest in 4 to 6 weeks to follow-up LLL pneumonia resolution, and also to follow up nodular opacity in inferior lingula
- Maintain SpO2 88-95% with supplemental O2 and wean as tolerated
- Given that he is on Breztri as an outpatient, continue with Symbicort 160mcg + Spiriva Respimat; prn nebulized bronchodilators
- Keep disposable cup at bedside to help quantify hemoptysis
- Avoid antiplatelet/anticoagulants until hemoptysis has resolved
- Trend H/H and transfuse if Hb<7g/dL; keep plt>50k
- Incentive spirometer encouraged 10x per hour for at least 4 hours a day
- He does qualify for lung cancer screening via annual LDCT chest once this left lower lobe pneumonia + nodular opacity in the lingula is found to be stable, this will be discussed with him the office
- Replete electrolytes with K>4, Mg>2
- Maintain euglycemia with goal BG >100 and <180
- DVT ppx: SCDs only for now given his hemoptysis
Pulmonary service will continue to follow along. Outpatient follow-up will also be arranged with our office. If left lower lobe consolidation persists then will discuss biopsy.
Data:
CTA chest w/wo contrast 05/13/2024:
1.No aortic aneurysm or dissection.
2. Consolidation within the left lower lobe with surrounding groundglass opacities. There are also additional nodular consolidations within the right lower and left upper lobes. Findings likely represent multifocal pneumonia. There is mild
mediastinal and left hilar lymphadenopathy, likely reactive. Recommend follow-up CT chest to ensure resolution.
3. Hepatic steatosis.
Total time spent today was 57 minutes for this encounter. Time includes reviewing laboratory test/imaging results, reviewing pertinent medical records, obtaining and reviewing medical history, performing an appropriate exam, ordering medications,
tests and procedures. Time also includes documentation of this encounter, coordinating patient care and communicating with other healthcare professionals. Total time does not include separately billed tests performed on this date of service.
[2024-05-13 18:13] LABS: Glucose - Point of Care 93 mg/dl (70-99)
--- NOTE | 2024-05-13 19:44 | PTCARENOTE ---
Rn flow-Patient's admission completed. Patient expectorated a golfball sized clot into a tissue. Patient then provided with a specimen cup. Patient then expectorated again x2. Divide texted Dr Ortega. Informed Elian nurse in ed, and call placed to
nurse on 3rd floor.
[2024-05-13] MEDS: SYMBICORT 160/4.5 MCG INHALER 2 PUFF INH (20:38)
[2024-05-13] MEDS: LIPITOR 80 MG PO (20:48)
[2024-05-13 21:52] LABS: Glucose - Point of Care 105 mg/dl (70-99)
[2024-05-14 05:53] LABS: Hematocrit 43.1 % (39.0-52.0); Hemoglobin 14.7 g/dL (13.0-18.0); Mean Corp Hgb Conc. 34.1 g/dL (33.0-37.0); Mean Corpuscular Hgb 29.5 pg (27.0-31.0); Mean Corpuscular Volume 86.4 fL (80.0-94.0); Mean Platelet Volume 9.1 fL (7.4-10.4); Platelet Count 230 10^3/uL (130-400); Red Blood Cell Count 4.99 10^6/uL (4.70-6.10); Red Cell Dist. Width 13.9 % (11.5-14.5); White Blood Cell Count 8.3 10^3/uL (4.8-10.8)
[2024-05-14 06:16] LABS: ALT (SGPT) 31 U/L (0-50); AST (SGOT) 23 U/L (17-59); Alkaline Phosphatase 104 U/L (38-126); Blood Urea Nitrogen 15 mg/dl (9-20); Calcium 9.3 mg/dl (8.4-10.2); Carbon Dioxide 28 mmol/L (22-30); Chloride 101 mmol/L (98-107); Estimated Creatinine Clearance > 125 ml/min; Glucose 110 mg/dl (70-99); Potassium 4.6 mmol/L (3.5-5.1); Sodium 140 mmol/L (135-145); Total Bilirubin 0.7 mg/dl (0.2-1.3); Total Protein 6.6 g/dl (6.3-8.2); eGFR > 60.00
[2024-05-14 06:22] LABS: NT-proBNP 44.9 pg/ml
[2024-05-14 06:23] LABS: Procalcitonin < 0.05 ng/ml (0.0-0.25)
[2024-05-14 07:44] LABS: Glucose - Point of Care 111 mg/dl (70-99)
[2024-05-14] MEDS: VIBRAMYCIN 100 MG PO (07:44)
[2024-05-14] MEDS: GLUCOPHAGE XR EXTENDED RELEASE 500 MG PO (07:44)
[2024-05-14] MEDS: SYMBICORT 160/4.5 MCG INHALER 2 PUFF INH (07:50)
[2024-05-14] MEDS: SPIRIVA RESPIMAT 2.5 MCG 2 PUFF INH (07:50)
[2024-05-14 07:51] VITALS: BP 140/89
[2024-05-14] MEDS: STERILE WATER FOR INJECTION 10 ML IV (11:23)
[2024-05-14] MEDS: ROCEPHIN 1000 MG IV (11:23)
[2024-05-14 11:27] LABS: Glucose - Point of Care 91 mg/dl (70-99)
--- NOTE | 2024-05-14 12:47 | W.DCSUMMARY ---
Discharge Summary
Discharge Data
Date of Admission: 05/13/24
Date of Discharge: 05/14/24
-
Pending Results: Yes
Additional Pending Results:
Follow-up on sputum culture and blood culture taken on 05/14/2024
Hospital Course
Discharging Physician : William Yates
Disposition : Home (Routine Discharge)
Primary care physician : Casimiro Rayo
Principal Discharge diagnosis : Hemoptysis
Chronic Discharge diagnosis : Reported history of COPD, history of pneumonia, ischemic CVA, essential hypertension, hyperlipidemia, diabetes
Hospital Course : Patient is a 59-year-old male with a medical history of essential hypertension, diabetes, hyperlipidemia, prior CVA with no residual deficits, prior smoker for 40 years who quit 3 months ago who presented to the emergency
department with gross hemoptysis. The patient stated that he had been coughing a lot with phlegm every morning after he decided to quit smoking. The morning of his presentation to the emergency department he coughed up blood with no clots. At one
point he did cough up pure blood without any sputum which prompted him to go to the emergency department. He currently takes aspirin and 800 mg of ibuprofen a day for his knee. He denies any fevers, chills, chest pain, difficulty breathing,
nausea, or vomiting. He has no recent leg swelling. He is not on any blood thinners. On presentation to the emergency department the patient had a pulse of 75, respiration rate of 18, BP of 178/110, and a pulse oximetry of 91 on room air. He was
placed on 2 L nasal cannula and his oxygen saturation returned back to normal limits. On physical examination gross hemoptysis was seen and the patient's lungs were clear to auscultation. The patient was admitted to [facility] for
hemoptysis.
Chest x-ray showed no active cardiopulmonary disease and a CTA chest showed a left lower lobe consolidation with surrounding groundglass opacities in addition to nodular opacification within the lingula. There is also mild mediastinal and left
hilar lymphadenopathy seen. Patient was given ceftriaxone and Zithromax. Pulmonology was consulted for additional management and recommendations. Pulmonology recommended continuing antibiotics with plan for total of 7 days of antibiotic use
assuming that he continues to improve and remains afebrile 48 hours prior to stopping. Patient was given ceftriaxone and doxycycline. Sputum culture was sent, blood cultures, and urine antigens for strep pneumonia plus Legionella was sent as well.
Pulmonology also recommended repeating imaging of the CT chest 4 to 6 weeks to follow-up left lower lobe pneumonia resolution and also to follow-up on the nodular opacity in the inferior lingula. It is recommended that the patient keep a SpO2
between 88 and 95%. If patient cannot be weaned off of his oxygen then he should continue on it in order to main proper oxygenation. Patient was also encouraged to use an incentive spirometer 10 times per hour for at least 4 hours a day. The
patient believes that he is appropriate for discharge and would like to go home with antibiotics. Patient will be discharged on benzonatate 200 mg 3 times daily, cefdinir 300 mg twice daily for 5 days, doxycycline 100 mg twice daily for 5 days.
Patient to follow-up with pulmonology in office for repeat CT scan, PFT, and sleep study. The patient has been instructed to return to the hospital if his symptoms remain the same or worsen.
The patient has reached maximal benefit from this hospital admission and is appropriate for discharge at the present time. There are no barriers that would impede the patient from being safely discharged. 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 The patient should be followed up by his primary care provider in the primary care setting 1 to 2 weeks following his discharge from the hospital.
Important imaging findings :
-Chest x-ray conducted on 05/13/2024:
Frontal and lateral radiographs of the chest were obtained.
The cardiac silhouette and pulmonary vasculature are radiographically within normal limits.
There are no acute mediastinal abnormalities.
There are no acute pleural or parenchymal abnormalities.
-CT angiography conducted on 05/13/2024:
Vasculature: Heart is not enlarged. Ramus intermedius. Mild coronary artery calcifications. No thoracic aortic aneurysm or dissection. Mild atherosclerotic changes. Origins of the great vessels from the aortic arch are without significant
stenosis. No dilatation of the iliac arteries. No pulmonary embolus identified.
Chest: The central airways are patent. There is a left lower lobe consolidation with associated bronchiectasis and surrounding groundglass opacities.. There is additional scattered groundglass opacities within the bilateral lower lobes. There is an
8 mm nodule within the posterior right upper lobe (series 504 image 25). There is a 1.2 cm nodule in the posterior left upper lobe. There is an additional 4 mm nodule within the superior left lower lobe.
There is mild left hilar lymphadenopathy with a 9 mm lymph node (series 504 image 177).
No suspicious osseous lesions. There is mild dextroconvex curvature of the thoracic spine. There is severe degenerative changes of the bilateral glenohumeral joints with subchondral cystic formation and sclerosis.
Visualized upper abdomen: Hepatic steatosis. There is a 7 mm hypodensity within the left hepatic lobe, likely cyst.
Procedure findings : N/A
Discharge Plan
-
Patient Disposition: Home (Routine Discharge)
Discharge Diagnosis/Procedures: Left lobe pneumonia, Hemoptysis
Condition: Fair
Diet: Regular
Activity: As tolerated
Driving Restrictions: No driving
Bathing Restrictions: OK to Shower
Referrals:
Casimiro Farley MD [Family Provider] - in one week
Ryan Ortega MD [Active] - in four to six weeks (full PFTs on day of office visit)
Prescriptions:
New
cefdinir 300 mg capsule
300 mg PO BID 5 Days Qty: 10 0RF
doxycycline hyclate 100 mg capsule
100 mg PO BID Qty: 10 0RF
benzonatate 200 mg capsule
200 mg PO TID PRN (Reason: Cough) Qty: 14 0RF
Continued
Breztri Aerosphere 160-9-4.8 mcg/actuation Hfa Aerosol Inhaler
2 inh INHALATION R BID
albuterol sulfate 90 mcg/actuation Hfa Aerosol Inhaler
2 puff inhalation R Q4HPRN PRN (Reason: SOB, wheezing) Qty: 8.5 0RF
metformin 500 mg Tablet Extended Release 24 Hr
500 mg PO DAILY
atorvastatin 80 mg tablet
80 mg PO QPM
aspirin 81 mg tablet,chewable
81 mg PO DAILY
Held
ibuprofen 200 mg Tablet
600 mg PO DAILY
Hold Instructions: Resume on 05/18/24.
ibuprofen 200 mg Tablet
200 mg PO DAILYPRN PRN (Reason: mild pain)
Hold Instructions: Resume on 05/18/24.
Discharge Orders:
Discharge Patient (As Directed); Ordered 05/14/24
Ordered By: William Yates
Discharge Date and Time
Discharge Date/Time: 05/14/24 13:22
Print Language: EMIRATI
--- NOTE | 2024-05-14 13:28 | W.PN.HOSP.TC ---
Today's Communication/Plan
-
d/c home
Assessment / Plan
Assessment / Plan
1. Hemoptysis
Left lower lobe infiltration - r/o PNA
- came in with new onset of blood on coughing in morning
- no fever/shortness breath
-Patient denies history of any recent facial trauma/nasal septal procedure/epistaxis/throat discomfort/dysphagia/history of esophageal-gastric bleed
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
-Clinically possibly brisk trachea/bronchial small vessel bleed induced by coughing episode causing left lower lobe aspiration and hemoptysis
-CTA chest images reviewed in ER and showing some bronchiectasis on the bilateral lower lobe. No PE visible.
-Sputum culture final report pending
-Urine Streptococcus pneumonia/Legionella antigen test negative
-Procalcitonin negative
-Discussed with pulmonology, patient does not have any further episodes of hemoptysis in the night. Patient safe to be discharged on oral Omnicef/doxycycline course for few days.
-Patient to follow-up with pulmonology in office for repeat CT scan/PFT/sleep study
2. Type II DM
- maintain on metformin. continue on ISS
3. Possible COPD
-FP provided alb/breztri
-will need f/u with pulmo and PFT
DVTPPX - SCD
Full code
More than 30 minutes spent in discharge including
Final examination of the patient
Summarizing hospital stay
Instructions for continuing care to all relevant caregivers
Preparation of discharge records, prescriptions, and referral forms
Total time spent (in minutes): 39 mins
Anticipated Discharge: Today
Subjective/Interval History
-
Date of Service: May 14, 2024
Denies of having any further hemoptysis/sob
no fever overnight
Objective Data
-
Labs:
Laboratory Results
05/14/24
05:29
WBC 8.3
Hgb 14.7
Hct 43.1
Plt Count 230
Sodium 140
Potassium 4.6
Chloride 101
Carbon Dioxide 28
BUN 15
Creatinine 0.8
Glucose 110 H
Calcium 9.3
Total Bilirubin 0.7
AST 23
ALT 31
Alkaline Phosphatase 104
Vital Signs:
Vital Signs
Temp Pulse Resp BP Pulse Ox
97.7 F 76 18 140/89 96
05/14/24 07:51 05/14/24 07:55 05/14/24 07:55 05/14/24 07:51 05/14/24 07:55
I&O
05/13/24 05/14/24 05/15/24
06:59 06:59 06:59
Intake Total 480 / 480
Output Total 475 / 475
Balance 5 / 5
Review of Systems
-
Respiratory: Reports Cough; Denies Hemoptysis or Trouble Breathing
Cardiac: Reports No Symptoms
Abdomen/GI: Reports No Symptoms
Physical Exam
-
General: No Apparent Distress and Comfortable
HEENT: Negative Oxygen
Respiratory: Clear to Auscultation
Cardiac: Regular Rhythm and S1/S2; Negative Murmur or Rub
GI: Soft, Nontender, Nondistended and Normal Bowel Sounds
Musculoskeletal: No Edema
Neuro: Awake, Alert, Oriented, No Motor Deficits and Nonfocal/Grossly Intact
Psych: Calm
--- NOTE | 2024-05-14 14:06 | CM ---
Alert awake oriented patient who lives with his Jazmin who lives in a 1 story home with 3 step to enter and bed and bathroom on first floor He is independent in driving and in all activities of daily living.He was offered VN he declined
need. will drive him home.
No VN hx / No SNF history
Pharmacy [facility]
PCP DR Joe Farley
PLAN Home Declined VN
[2024-05-14 20:10] LABS: Hepatitis C Antibody Negative (Negative)
== END 2024-05-14 13:22 | disposition home or self-care (01) | DRG 190 ==
LOC: 3 WEST ACU 15:25
PROVIDERS: ADMITTING PHYSICIAN Hospitalist; CONSULT PHYSICIAN Internal Medicine Critical Care Medicine; EMERGENCY PHYSICIAN Student in an Organized Health Care Education/Training Program; FAMILY PHYSICIAN Internal Medicine
DX: J44.0 Chronic obstructive pulmonary disease with (acute) lower respiratory infection (principal); J18.9 Pneumonia, unspecified organism; Z68.41 Body mass index [BMI] 40.0-44.9, adult; R04.2 Hemoptysis; I10 Essential (primary) hypertension; E78.00 Pure hypercholesterolemia, unspecified; E11.9 Type 2 diabetes mellitus without complications; R91.1 Solitary pulmonary nodule; K76.0 Fatty (change of) liver, not elsewhere classified; E66.01 Morbid (severe) obesity due to excess calories; Z87.891 Personal history of nicotine dependence; Z86.73 Personal history of transient ischemic attack (TIA), and cerebral infarction without residual deficits; Z79.899 Other long term (current) drug therapy; Z79.82 Long term (current) use of aspirin; Z79.84 Long term (current) use of oral hypoglycemic drugs; Z79.52 Long term (current) use of systemic steroids
CPT/HCPCS: 71046; 71275; 80053; 82962; 83036; 83880; 84145; 85025; 85027; 86803; 87040; 87070; 87205; 87449; 87899; 93005; 94640; 94760; 96365; 96375; 99285; Q9967